=== PATIENT | male | born 1945 | race Two or more races ===

== ENCOUNTER 2024-11-09 09:45 | Emergency (ER) | payer MEDICARE, MEDICAID, SELFPAY ==
[2024-11-09 10:07] VITALS: BP 121/66; PULSE 88; RESP 18; TEMP 37.8; O2SAT 95; BMI 25.0
--- NOTE | 2024-11-09 10:19 | EKG_ITS ---
[facility] (Formerly [facility]) Test Date: 2024-11-09 Pat Name: GEREMIAS OLMEDO Department: Room: - Gender: Male Back Joiner: : 1945 Requested By: Ky Lyles (DON) Order Number: [id number] Reading MD: Ky Lyles (BUTTON TUFTER) Measurements Intervals [place] Rate: 83 P: SD: QRS: 8 QRSD: 95 T: 36 QT: 377 QTc: 445 Interpretive Statements SUPRAVENTRICULAR RHYTHM ABNORMAL RHYTHM ECG No previous ECG available for comparison /store/S0/[id number]/ecg/[id number]
--- NOTE | 2024-11-09 10:19 | XR_ITS ---
Examination: AP chest single view Technique one AP portable upright chest single view Exam date and time: November 09, 2024 1046 hours Comparison May 18, 2018 INDICATIONS: Shortness breath coughing beginning 3 days ago. FINDINGS: No significant cardiac enlargement CABG Mild vascular congestion. No lobar pneumonia Moderate osteopenia IMPRESSION: Mild vascular congestion No lobar pneumonia
--- NOTE | 2024-11-09 10:19 | XR_ITS ---
Examination: CT brain head without contrast. 2-D sagittal coronal reconstructions Date and time of exam:November 09, 2024 1029 hours INDICATIONS: Onset confusion altered mental status today CTDI: vol (mGy):49.6 DLP: (mGycm):974 Technique: Multiple CT axial sections of the brain have been obtained, 5 mm slice thickness. Contrast has not been administered. 2-D sagittal, coronal reconstructions have been obtained Low dose protocols were performed. One or more of the following dose reduction techniques were used; automated exposure control, adjustment of the mA and/or KV according to patient size, use of iterative reconstruction technique. Findings: No significant ventricular enlargement. Intra-axial or extra-axial hemorrhage density is not seen. No mass effect or midline shift Basal cisterns are not remarkable. Fourth ventricle is midline. Cranial vault intact. Significant chronic sinusitis Impression: Negative for acute hemorrhage, mass effect or midline shift If symptoms persist, consider brain MRI follow-up, stroke protocol
[2024-11-09 11:09] LABS: Lactate (Lactic Acid) 1.7 mMol/L (0.4-2.0)
[2024-11-09 11:36] LABS: Basophils % (Auto) 0 % (0-2.5); Eosinophils % (Auto) 0 % (0-10); Hematocrit 32.1 % (41.0-53.0); Hemoglobin 10.5 g/dL (13.5-16.0); Immature Granulocytes % (Auto) 0 % (0-0); Immature Granulocytes Auto 0.02 Thou/mm3 (0.00-0.00); Lymphocytes # (Auto) 1.2 Thou/mm3 (1.0-4.8); Lymphocytes % (Auto) 12 % (10-50); Mean Corpuscular HGB Conc 32.7 g/dl (31.0-37.0); Mean Corpuscular Hemoglobin 27.8 pg (25.0-35.0); Mean Corpuscular Volume 85 fL (80-100); Monocytes # (Auto) 1.1 Thou/mm3 (0.0-0.8); Monocytes % (Auto) 12 % (0-12); Neutrophils # (Auto) 7.4 Thou/mm3 (1.8-7.7); Neutrophils % (Auto) 75 % (37-80); Nucleated Red Blood Cell % 0 /100 WBC (0); Platelet Count 216 Thou/mm3 (140-440); RDW Standard Deviation 46.2 fL (35.1-43.9); Red Blood Count 3.78 Miln/mm3 (4.50-5.90); White Blood Count 9.8 Thou/mm3 (3.8-10.6)
[2024-11-09 11:41] LABS: Alanine Aminotransferase 15 U/L (10-49); Albumin, Serum 4.9 gm/dL (3.4-4.8); Albumin/Globulin Ratio 1.6 (1.2-2.2); Alkaline Phosphatase 100 U/L (46-116); Anion Gap 12 (7-16); Aspartate Amino Transferase 23 U/L (0-34); BUN/Creatinine Ratio 11 Ratio (12-20); Bilirubin,Total 0.7 mg/dL (0.3-1.2); Blood Urea Nitrogen 25 mg/dL (9-23); Calcium 9.7 mg/dL (8.3-10.6); Calcium (Corrected) 9.7 mg/dL (8.5-10.1); Carbon Dioxide 23.1 mMol/L (20.0-31.0); Chloride 100 mMol/L (98-107); Creatinine (Component) 2.2 mg/dL (0.6-1.3); Estimated Creatinine Clearance 25.9 mL/min (>60); Globulin 3.1 gm/dL (2.3-3.5); Glucose 153 mg/dL (74-106); Osmolality,Calculated 277 (275-295); Potassium 4.4 mMol/L (3.4-5.1); Procalcitonin 0.75 ng/ml (0.0-0.49); Sodium 135 mMol/L (136-145); Troponin I < 0.020 ng/mL (0.0-0.045); eGFR 30 See Note
[2024-11-09 12:03] VITALS: BP 139/71; PULSE 83; RESP 18; TEMP 37.4; O2SAT 97
[2024-11-09 12:09] VITALS: BP 139/71; PULSE 78; RESP 17; TEMP 37.3; O2SAT 94
--- NOTE | 2024-11-09 12:19 | EDNOTE_ITS ---
ED General RME/HPI General Chief complaint: Altered Mental Status Stated complaint: confused / altered since this morning/ weakness Time Seen by Provider: 11/09/24 11:21 Arrival date/time: 11/09/24 09:45 RME / HPI RME / HPI narrative: Chief complaint: Altered mentation HPI: Patient is a 79-year-old male with past medical history of type II mez-dxyoris-foxsrfcjc diabetes, primary hypertension, osteoarthritis, hyperlipidemia and advanced dementia, who was brought in by his family for change in his mentation over the last 24 hours. Patient is AO x 2 at baseline, lives alone and family checks on him every other day. As per granddaughter present at bedside, patient was found this morning at his porch sitting outside without any hands, on questioning he responded saying that there were multiple men and women in the house who asked him to take his clothes off and get out . He has never been confused or talked out of his normal, therefore family was concerned and decided to bring him to the ER. Patient has not had any signs of infection recently, denies any fevers or bodyaches or other systemic symptoms. Patient otherwise is ambulatory and carries out his activities of daily living independently. His long-term memory is intact, but he does have short-term memory lapses. Allergies: NKFDA Social history: Tobacco?hx:?Denies ETOH?hx:?Denies Drug?hx:?Denies Social?History?Note:?Lives alone at home, family visits daily Family history: Unsure Related Data Home Medications ?Medication ?Instructions ?Recorded ?Confirmed lisinopril 10 mg tablet 10 mg PO QDAY 08/18/1808/18 metformin 1,000 mg tablet 1,000 mg PO BID 08/18/1804/28 simvastatin 40 mg tablet 40 mg PO QDAY 08/18/1808/18 Previous Rx's ?Medication ?Instructions ?Recorded ibuprofen 600 mg tablet 600 mg PO Q8H PRN pain #30 t abs 04/30/21 donepezil 5 mg tablet 5 mg PO QDAY #30 tabs risperidone 0.5 mg tablet 0.5 mg PO QDAY #30 tabs 10/13 07/06 (Risperdal) risperidone 1 mg tablet (Risperdal) 1 mg PO .bedtime # 30 tabs 11/09/24 Allergies Allergy/AdvReac Type Severity Reaction Status Date / Time No Known Allergies Allergy Verified 11/09/24 09:46 Review of Systems Review of Systems Narrative Review of Systems: GENERAL: Denies fevers/chills or diaphoresis. HEENT: Denies headache or visual/hearing changes. Denies nasal discharge. NEURO: Denies unusual weakness or difficulty speaking. CARDIO: Denies chest pain or palpitations. PULM: Denies SOB, coughing, or wheezing. GI: Denies abdominal pain, N/V/C/D. Reports having BMs URO: Denies burning/itching/pain/urinary changes. MSK/EXT/SKIN: Denies joint/skeletal/muscle pain, issues/changes in upper or lower extremities, itchiness, or superficial pain. PSYCH: Cooperative, pleasant mood & affect. The rest of the review of systems is otherwise negative. ED Exam Narrative Physical exam: Constitutional Alert, oriented x2, elderly HEENT Vision grossly intact. Patent nares. Trachea midline. Respiratory Chest normal on inspection and clear to auscultation bilaterally. Cardiovascular S1 and S2 audible, RRR. No murmurs or carotid bruit. No gross JVD. Abdominal Soft and non tender to palpation in all quadrants. BS + Genitourinary No bladder tenderness, no flank pain. Normal to palpation. Musculoskeletal Extremities tone within normal limits. No LE edema. Neurological CN II - XII grossly intact. Extremity motor and sensation grossly intact. Skin Warm, dry and intact. No apparent lesions. Psychiatric Patient has a good affect, is cooperative. Course Quality Measures none Orders Category Date Time Status Bedside COVID-19 Antigen Test NOW Care 11/09/24 10:19 Completed Bedside Influenza A&B Antigen Test NOW Care 11/09/24 10:19 Completed EKG (ED ONLY) *Do not use* NOW Care 11/09/24 10:[address] head/brain wo con Stat Exams 11/09/24 10:19 Completed EKG (ED Only) Stat Exams 11/09/24 10:19 Draft XR chest 1V portable Stat Exams 11/09/24 10:19 Completed Blood Culture (Lab) Stat Lab 11/09/24 10:55 Received CBC Stat Lab 11/09/24 10:55 Completed Comprehensive Metabolic Panel Stat Lab 11/09/24 10:55 Completed Lactate (Lactic Acid) Stat Lab 11/09/24 10:55 Completed Procalcitonin Stat Lab 11/09/24 10:55 Completed Troponin I Stat Lab 11/09/24 10:55 Completed Urinalysis Stat Lab 11/09/24 12:07 Completed Urine Culture Stat Lab 11/09/24 12:07 Received Sodium Chloride 0.9% 1000 ml [Ns] 1,000 ml Med 11/09/24 11:53 Discontinued IV 999 mls/hr Reevaluation(s) Reevaluation #1: 2:15PM Patient appears to be at his baseline. All testing negative for any acute infections Family informed, will come to get patient Vital Signs Vital signs: Vital Signs Temperature 100.1 F 11/09/24 10:07 Pulse Rate 88 11/09/24 10:07 Respiratory Rate 18 11/09/24 10:07 Blood Pressure 121/66 11/09/24 10:07 Pulse Oximetry (%) 95 11/09/24 10:07 Oxygen Delivery Method Room Air 11/09/24 10:07 [facility] Patient data External records reviewed:: None Clinical information provided by:: patient and family Social determinants that could affect healthcare access:: other (specify) (Advanced age) Patient has the following chronic illnesses:: Advanced age, DM, hyperlipidemia, HTN How is presenting disease/condition affected by chronic disease/condition?: e xacerbated by Evaluation data The following diagnostics were reviewed and interpreted by me:: lab results, radiology exam(s) and EKG tracing(s) (My interpretation of the EKG is: Probable sinus rhythm (83 bpm) with nonspecific ST-T changes. Albert Vega MD) Lab and/or radiology exams considered but not ordered:: None Interpretation Summary: Dementia Medications Medications considered but not ordered:: None Medication administrations:: Medication Administration History Discontinued Medications Sodium Chloride (Ns) 1,000 mls @ 999 mls/hr IV .Q1H1M ONE Stop: 11/09/24 12:53 Last Admin: 11/09/24 13:19 Dose: 999 mls/hr Documented By: EDU IV fluid Consultations Consultation(s) initiated? (list below): No Diagnosis Differential Diagnosis ED Complaint MDM: CVA, OH, UTI, pneumonia, sepsis, electrolyte abnormalities, dementia Most likely diagnosis given after review of the tests above:: Dementia Admission Indicated Admission indicated?: not indicated Explain why admission is indicated or not indicated:: No criteria for admission Admission Request Was there a request for admission?: No Disposition Plan Disposition Plan: Discharge Discharge Attestation Discharge Attestation: The patient and all family members were given an opportunity to ask questions and understood the discharge instructions. Discharge instructions specifically effects, indications for sooner follow up or return to the emergency department, and the expected course of current diagnosis. Patient condition: Stable Medical Decision Making MDM Narrative MDM Narrative: Patient is a 79 year old elderly gentleman who was seen for an isolated episode of altered mentation. In the ER, patient was at his baseline and all testing was negative for any acute illness. Plan: Discharge home, follow up with PCP. family advised to keep re-orienting the patient. Differential Diagnosis Differential Diagnosis: CVA, OH, UTI, pneumonia, sepsis, electrolyte abnormalities, dementia Lab Data 11/09/24 10:55 11/09/24 10:55 Labs: Lab Results 11/09/24 11/09/24 Range/Units 10:55 12:07 WBC 9.8 (3.8-10.6) Thou/mm3 RBC 3.78 L (4.50-5.90) Miln/mm3 Hgb 10.5 L (13.5-16.0) g/dL Hct 32.1 L (41.0-53.0) % MCV 85 (80-100) fL MCH 27.8 (25.0-35.0) pg MCHC 32.7 (31.0-37.0) g/dl RDW Std Deviation 46.2 H (35.1-43.9) fL Plt Count 216 (140-440) Thou/mm3 Neut % (Auto) 75 (37-80) % Lymph % (Auto) 12 (10-50) % [place] % (Auto) 12 (0-12) % Eos % (Auto) 0 (0-10) % Baso % (Auto) 0 (0-2.5) % Neut # (Auto) 7.4 (1.8-7.7) Thou/mm3 Lymph # (Auto) 1.2 (1.0-4.8) Thou/mm3 [place] # (Auto) 1.1 H (0.0-0.8) Thou/mm3 Eos # (Auto) 0.0 (0.0-0.5) Thou/mm3 Baso # (Auto) 0.0 (0.0-0.2) Thou/mm3 Immature Gran # (Auto) 0.02 H (0.00-0.00) Thou/mm3 Absolute Nucleated RBC 0.00 (0.00-0.00) Thou/mm3 Immature Gran % 0 (0-0) % Nucleated RBC % 0 (0) /100 WBC Sodium 135 L (136-145) mMol/L Potassium 4.4 (3.4-5.1) mMol/L Chloride 100 (98-107) mMol/L Carbon Dioxide 23.1 (20.0-31.0) mMol/L Anion Gap 12 (7-16) BUN 25 H (9-23) mg/dL Creatinine 2.2 H (0.6-1.3) mg/dL Estim Creat Clear Calc 25.9 L (>60) mL/min eGFR 30 L (60 - ) See Note BUN/Creatinine Ratio 11 L (12-20) Ratio Glucose 153 H (74-106) mg/dL Calculated Osmolality 277 (275-295) Lactic Acid 1.7 (0.4-2.0) mMol/L Calcium 9.7 (8.3-10.6) mg/dL Corrected Calcium 9.7 (8.5-10.1) mg/dL Total Bilirubin 0.7 (0.3-1.2) mg/dL AST 23 (0-34) U/L ALT 15 (10-49) U/L Alkaline Phosphatase 100 (46-116) U/L Troponin I < 0.020 (0.0-0.045) ng/mL Total Protein 8.0 (5.7-8.2) gm/dL Albumin 4.9 H (3.4-4.8) gm/dL Globulin 3.1 (2.3-3.5) gm/dL Albumin/Globulin Ratio 1.6 (1.2-2.2) Procalcitonin 0.75 H (0.0-0.49) ng/ml Ur Collection Type Clean Catch Urine Color Yellow (Lt Yel-Yel) Urine Clarity Turbid A (Clear/Hazy) Urine pH 6.0 (5.0-7.0) Ur Specific [place] 1.022 (1.001-1.035) Urine Protein 3+ A (Neg - Trace) Urine Glucose (UA) Negative (Negative) Urine Ketones Negative (Negative) Urine Blood Negative (Negative) Urine Nitrite Negative (Negative) Urine Bilirubin Negative (Negative) Urine Urobilinogen (Auto) Negative (0.0-1.0) mg/dL Ur Leukocyte Esterase Negative (Negative) Urine RBC 6 H (0-3) /hpf Urine WBC 5 (0-5) /hpf Ur Squamous Epith Cells < 1 (0-5) /hpf Urine Bacteria None (None) Hyaline Casts < 1 (0-1) /hpf Discharge Plan Plan Patient Disposition: HOME (Self Care) Prescriptions/Referrals Prescriptions/Med Rec: New donepezil 5 mg tablet 5 mg PO QDAY Qty: 30 1RF risperidone [Risperdal] 0.5 mg tablet 0.5 mg PO QDAY Qty: 30 1RF risperidone [Risperdal] 1 mg tablet 1 mg PO .bedtime Qty: 30 1RF No Action simvastatin 40 mg Tablet 40 mg PO QDAY metformin 1,000 mg Tablet 1,000 mg PO BID lisinopril 10 mg Tablet 10 mg PO QDAY ibuprofen 600 mg tablet 600 mg PO Q8H PRN (Reason: pain) Qty: 30 0RF Referrals: Alejandro Sim MD [Primary Care Provider] - In 1 week Problem List Clinical Impression: Dementia Patient/Caregiver Discharge Instructions Discharge Activity: activity as tolerated Education Materials: ED CAREGIVER SUPPORT for DEMENTIA Additional Instructions: Discharge Instructions from Dr. Vega printed for you: 1. After evaluation, Mr. Whyte has dementia. There is no immediately life- threatening condition. Such as stroke or brain tumor. And there is no very serious infection, such as UTI or pneumonia or blood poisoning. 2. To help the dementia, risperidone 0.5 mg every morning. And risperidone 1 mg and benazepril 5 mg every night. Until cleared by a doctor taking care of him. 3. See a private doctor on 11/11/2024 for recheck and further care. Ask to review all test results and official radiology reports, to make sure you receive all necessary follow-ups and monitoring. 4. Seek immediate medical care with worsening or with any concerns. Instrucciones de torito del Dr. Vega impresas para usted: 1. Despu?s de la evaluaci?n, el Sr. Rodr?guez tiene demencia. No hay ninguna afecci?n que ponga en peligro callejas daria de inmediato, amee un derrame cerebral o un tumor cerebral, y no hay ninguna infecci?n muy grave, amee carlos infecci?n urinaria, neumon?a o envenenamiento de la mala. 2. Para ayudar con la demencia, risperidona 0,5 mg todas las ma?anas y risperidona 1 mg y benazepril 5 mg todas las noches, hasta que el m?dico que lo atienda lo autorice. 3. Consulte a un m?dico privado el 11/11/2024 para volver a realizarle un control y recibir m?s atenci?n. Pida que se revisen todos los resultados de las pruebas y los informes radiol?gicos oficiales para asegurarse de recibir todos los seguimientos y la supervisi?n necesarios. 4. Busque atenci?n m?dica inmediata si la enfermedad empeora o si tiene alguna inquietud. Print Language: Bengali Stand Alone Forms: [employer] Award Info., Patient Portal Info Letter
[2024-11-09 12:35] LABS: Collection Type, Urine Clean Catch
[2024-11-09 12:52] LABS: Bilirubin,Urine Negative (Negative); Blood,Urine Negative (Negative); Clarity,Urine Turbid (Clear/Hazy); Color,Urine Yellow (Lt Yel-Yel); Glucose, Urine Negative (Negative); Hyaline Casts,Urine < 1 /hpf (0-1); Ketones,Urine Negative (Negative); Leukocyte Esterase,Urine Negative (Negative); Nitrite,Urine Negative (Negative); Protein,Urine 3+ (Neg - Trace); RBC,Urine 6 /hpf (0-3); Specific Gravity,Urine 1.022 (1.001-1.035); Squamous Epithelial Cell,Urine < 1 /hpf (0-5); Urobilinogen,Urine Negative mg/dL (0.0-1.0); WBC,Urine 5 /hpf (0-5)
[2024-11-09] MEDS: SODIUM CHLORIDE 0.9% 1000 ML 1,000 ML 999 ML IV (13:19)
[2024-11-09 14:12] VITALS: BP 139/76; PULSE 70; RESP 18; O2SAT 94
== END 2024-11-09 15:19 | disposition home or self-care (01) ==
PROVIDERS: Nurse Practitioner Primary Care; Emergency Provider Emergency Medicine; PCP Internal Medicine
DX: F03.90 Unspecified dementia, unspecified severity, without behavioral disturbance, psychotic disturbance, mood disturbance, and anxiety (principal); R05.9 Cough, unspecified; R06.02 Shortness of breath; R94.31 Abnormal electrocardiogram [ECG] [EKG]; I10 Essential (primary) hypertension; Z60.2 Problems related to living alone
CPT/HCPCS: 36415; 70450; 71045; 80053; 81001; 83605; 84145; 84484; 85025; 87040; 87086; 87400; 87811; 93005; 99284; J7030

== ENCOUNTER 2025-05-01 17:22 | Inpatient (IN) | payer OTHER, MEDICARE, SELFPAY ==
--- NOTE | 2025-05-01 17:41 | XR_ITS ---
Examination: CT brain head without contrast. 2-D sagittal coronal reconstructions Date and time of exam:May 01, 20252002 hours INDICATIONS: Headaches dizziness beginning 2 days ago CTDI: vol (mGy):49.2 DLP: (mGycm):970 Technique: Multiple CT axial sections of the brain have been obtained, 5 mm slice thickness. Contrast has not been administered. 2-D sagittal, coronal reconstructions have been obtained Low dose protocols were performed. One or more of the following dose reduction techniques were used; automated exposure control, adjustment of the mA and/or KV according to patient size, use of iterative reconstruction technique. Findings: No significant ventricular enlargement. Intra-axial or extra-axial hemorrhage density is not seen. No mass effect or midline shift Basal cisterns are not remarkable. Fourth ventricle is midline. Cranial vault intact. Impression: Negative for acute hemorrhage, mass effect or midline shift Advise clinical correlation and follow up accordingly
--- NOTE | 2025-05-01 17:41 | EKG_ITS ---
[facility] Test Date: 2025-05-01 Pat Name: GEREMIAS BOWLINGDepartment: Room: - Gender: Male Data Processor: : 1945 Requested By: Geovanny Stephens Order Number: [id number] Reading MD: Geovanny Stephens Measurements Intervals [place] Rate: 57 P: DC: QRS: 29 QRSD: 99 T: 0 QT: 436 QTc: 426 Interpretive Statements ATRIAL FLUTTER/TACHYCARDIA WITH SLOW VENTRICULAR RESPONSE MODERATE ST DEPRESSION [0.05+ mV ST DEPRESSION] No previous ECG available for comparison /store/S0/[id number]/[id number]
--- NOTE | 2025-05-01 17:42 | XR_ITS ---
Examination: Knee, left , 3 views Technique: Knee AP, lateral, oblique 3 views Date and time of exam: May 01, 2025 1755 hours INDICATIONS: Left knee pain 3 months FINDINGS: Moderate tricompartment osteoarthritis No fracture or dislocation No foreign body IMPRESSION: Moderate tricompartment osteoarthritis
--- NOTE | 2025-05-01 17:42 | PD.EDRME ---
Rapid Medical Screening Exam RME Arrival date/time: 05/01/25 17:22 79-year-old male with no known medical history presents to the emergency room with a chief complaint of a headache, dizziness, and left knee pain x 2 days I have greeted and performed a focused initial assessment of this patient. A comprehensive ED assessment and evaluation of the patient, analysis of all test results, and completion of the medical decision making process will be conducted by additional ED providers. Chief Complaint: Headache Time Seen by Provider: 05/01/25 17:27 Vital signs reviewed by provider: Yes
[2025-05-01 17:45] VITALS: BP 108/71; PULSE 61; RESP 19; TEMP 37.1; O2SAT 98
[2025-05-01 18:01] LABS: Basophils # (Auto) 0.0 Thou/mm3 (0.0-0.2); Basophils % (Auto) 1 % (0-2.5); Eosinophils # (Auto) 0.4 Thou/mm3 (0.0-0.5); Eosinophils % (Auto) 8 % (0-10); Hematocrit 31.5 % (41.0-53.0); Hemoglobin 10.6 g/dL (13.5-16.0); Immature Granulocytes Auto 0.02 Thou/mm3 (0.00-0.00); Lymphocytes # (Auto) 1.4 Thou/mm3 (1.0-4.8); Lymphocytes % (Auto) 27 % (10-50); Mean Corpuscular HGB Conc 33.7 g/dl (31.0-37.0); Mean Corpuscular Hemoglobin 27.8 pg (25.0-35.0); Mean Corpuscular Volume 83 fL (80-100); Monocytes # (Auto) 0.5 Thou/mm3 (0.0-0.8); Monocytes % (Auto) 11 % (0-12); Neutrophils # (Auto) 2.7 Thou/mm3 (1.8-7.7); Neutrophils % (Auto) 53 % (37-80); Nucleated Red Blood Cell # 0.00 Thou/mm3 (0.00-0.00); Nucleated Red Blood Cell % 0 /100 WBC (0); Platelet Count 213 Thou/mm3 (140-440); RDW Standard Deviation 47.1 fL (35.1-43.9); Red Blood Count 3.81 Miln/mm3 (4.50-5.90); White Blood Count 5.0 Thou/mm3 (3.8-10.6)
[2025-05-01 18:30] LABS: B-Type Natriuretic Peptide 146 pg/mL (0-100)
[2025-05-01 18:32] LABS: Alanine Aminotransferase 13 U/L (10-49); Albumin, Serum 4.3 gm/dL (3.4-4.8); Albumin/Globulin Ratio 1.7 (1.2-2.2); Alkaline Phosphatase 116 U/L (46-116); Anion Gap 9 (7-16); Aspartate Amino Transferase 17 U/L (0-34); BUN/Creatinine Ratio 9 Ratio (12-20); Bilirubin,Total 0.4 mg/dL (0.3-1.2); Blood Urea Nitrogen 18 mg/dL (9-23); Calcium 9.5 mg/dL (8.3-10.6); Calcium (Corrected) 9.5 mg/dL (8.5-10.1); Carbon Dioxide 26.4 mMol/L (20.0-31.0); Chloride 104 mMol/L (98-107); Creatinine (Component) 2.0 mg/dL (0.6-1.3); Globulin 2.5 gm/dL (2.3-3.5); Glucose 144 mg/dL (74-106); Magnesium 1.6 mg/dL (1.6-2.6); Osmolality,Calculated 282 (275-295); Potassium 4.5 mMol/L (3.4-5.1); Sodium 139 mMol/L (136-145); Total Protein 6.8 gm/dL (5.7-8.2); Troponin I < 0.020 ng/mL (0.0-0.045); eGFR 34 See Note
[2025-05-01] MEDS: MECLIZINE HCL 25 MG TABLET 50 MG PO (18:32)
[2025-05-01 22:20] LABS: Collection Type, Urine Clean Catch
[2025-05-01 22:27] LABS: Bilirubin,Urine Negative (Negative); Blood,Urine Negative (Negative); Clarity,Urine Turbid (Clear/Hazy); Color,Urine Yellow (Lt Yel-Yel); Glucose, Urine Negative (Negative); Hyaline Casts,Urine 1 /hpf (0-1); Ketones,Urine Trace (Negative); Leukocyte Esterase,Urine Positive (Negative); Nitrite,Urine Negative (Negative); PH,Urine 5.5 (5.0-7.0); Protein,Urine 1+ (Neg - Trace); RBC,Urine 3 /hpf (0-3); Specific Gravity,Urine 1.030 (1.001-1.035); Squamous Epithelial Cell,Urine 1 /hpf (0-5); Urobilinogen,Urine 3.0 mg/dL (0.0-1.0); WBC,Urine 6 /hpf (0-5)
[2025-05-01 22:55] VITALS: BP 132/84; PULSE 56; RESP 16; TEMP 37; O2SAT 96
--- NOTE | 2025-05-01 23:20 | EDNOTE_ITS ---
<Statement entered by Audra Zapata MD - 05/02/25 18:56> As co-signing physician, I was present and available for consult prn. I concur with the plan and care as documented by the midlevel provider. ED Dizzyness RME/HPI General Chief Complaint: Headache Stated Complaint: HEADACHES, DIZZY, PAIN IN KNEES, DIFF. WALKING Time Seen by Provider: 05/01/25 17:27 Arrival date/time: 05/01/25 17:22 79-year-old male with a past medical history of hypertension, diabetes, hyperlipidemia, CAD with CABG (unknown number of vessels), and dementia presents to the ED with his daughter with a chief complaint of dizziness, headache and knee pain. This has been going on since yesterday. He denies any chest pain or shortness of breath. He denies palpitations. Denies any recent illness with fever, chills, but has had a dry cough. He denies any nausea or vomiting. 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 RME / HPI RME / HPI Narrative: 05/01/25 17:22 79-year-old male with no known medical history presents to the emergency room with a chief complaint of a headache, dizziness, and left knee pain x 2 days I have greeted and performed a focused initial assessment of this patient. A comprehensive ED assessment and evaluation of the patient, analysis of all test results, and completion of the medical decision making process will be conducted by additional ED providers. Related Data Home Medications ?Medication ?Instructions ?Recorded ?Confirmed lisinopril 10 mg tablet 10 mg PO QDAY 08/18/1808/18 metformin 1,000 mg tablet 1,000 mg PO BID 08/18/1804/28 simvastatin 40 mg tablet 40 mg PO QDAY 08/18/1808/18 Previous Rx's ?Medication ?Instructions ?Recorded ibuprofen 600 mg tablet 600 mg PO Q8H PRN pain #30 t abs 04/30/21 donepezil 5 mg tablet 5 mg PO QDAY #30 tabs risperidone 0.5 mg tablet 0.5 mg PO QDAY #30 tabs 10/13 07/06 (Risperdal) risperidone 1 mg tablet (Risperdal) 1 mg PO .bedtime # 30 tabs 11/09/24 Allergies Allergy/AdvReac Type Severity Reaction Status Date / Time No Known Allergies Allergy Verified 05/02/25 04:57 Review of Systems Review of Systems Systems Reviewed: All systems reviewed, normal except as documented Past Medical History Past Medical History NEUROLOGIC: Negative Neurological Disorders or Seizures CARDIAC: Positive Hypertension; Negative Cardiac Disorders or Congestive Heart Failure RESPIRATORY: Negative Chronic Obstructive Pulmonary Disease (COPD) GENITOURINARY: Negative Genitourinary Disorders or Renal Disease MUSCULOSKELETAL: Negative Musculoskeletal Disorders ENT: Positive Cataracts (OS) and Blind (RIGHT EYE) ENDOCRINE: Positive Endocrine Disorders and Diabetes Mellitus Type 2; Negative Diabetes Mellitus Type 1 HEMATOLOGIC: Negative Blood Disorders OTHER HISTORY: Negative Autoimmune Disease, Falls, Blood Transfusions or Anesthesia Reactions Surgical History SURGICAL: Positive Angiogram Social History SMOKING STATUS: Never smoker Past Medical History Comments PMH COMMENT: Hypertension, diabetes, hyperlipidemia, and dementia. ED Exam Narrative Physical exam: ALERT, afebrile and non-toxic appearing 79-year-old male, no acute distress. Lung are clear, RRR, well-healed sternotomy scar noted. Abdomen is soft and non-distended. He has mild left upper quadrant tenderness. No pedal edema noted. Moves all extremities well. Course Course Course Narrative: Initial vital signs blood pressure 108/71, pulse 61, respirations 19 and nonlabored, temp 98.7, O2 sat 98% on room air. CBC reveals a normal white count, no low H&H of 10.6/31.5 with normal platelets. Chemistry panel reveals normal electrolytes with the exception of an elevated glucose of 144. Creatinine is elevated at 2.0 and BUN is normal at 18. LFTs are normal. Troponin is normal at less than 0.020 and BNP is elevated at 146. Urinalysis reveals turbid yellow urine with a specific gravity of 1.030 with 1+ protein, trace ketones, negative nitrates, positive leukocyte esterase with 3 RBCs, 6 WBCs, 1 epithelial and no bacteria. EKG reveals atrial flutter with 4-1 conduction. This is a new EKG finding as compared to previous EKGs from 11/05. XR left knee reveals: Tricompartment osteoarthritis noted. No acute fracture. CT brain without contrast reveals: Negative for acute hemorrhage, mass effect or midline shift. XR chest ordered and pending. Quality Measures none Orders Category Date Time Status EKG (ED ONLY) *Do not use* NOW Care 05/01/25 17:[address] head/brain wo con Stat Exams 05/01/25 17:41 Completed EKG (ED Only) Stat Exams 05/01/25 17:41 Draft XR chest 1V portable Stat Exams 05/01/25 23:39 Completed XR knee LT 3V Stat Exams 05/01/25 17:42 Completed B-Type Natriuretic Peptide Stat Lab 05/01/25 17:51 Completed CBC Stat Lab 05/01/25 17:51 Completed Comprehensive Metabolic Panel Stat Lab 05/01/25 17:51 Completed Magnesium Stat Lab 05/01/25 17:51 Completed Troponin I Stat Lab 05/01/25 17:51 Completed Urinalysis Stat Lab 05/01/25 22:10 Completed Meclizine HCl [Antivert] Med 05/01/25 17:41 Discontinued 50 mg PO X1 ONE Vital Signs Vital signs: Vital Signs Temperature 98.7 F 05/01/25 17:45 Pulse Rate 61 05/01/25 17:45 Respiratory Rate 19 05/01/25 17:45 Blood Pressure 108/71 05/01/25 17:45 Pulse Oximetry (%) 98 05/01/25 17:45 Oxygen Delivery Method Room Air 05/01/25 17:45 Dizziness MDM Narrative MDM Narrative:: Symptoms, exam and diagnostic studies are consistent with: Dizziness secondary to new onset atrial flutter with a 4-1 conduction. Old records reviewed, which revealed no evidence of previous atrial flutter on 2 previous EKGs. Patient was admitted to the hospital in stable condition. Patient has an old record under the name of Cameron Whyte Patient data External records reviewed:: [facility] previous records Clinical information provided by:: patient and family Social determinants that could affect healthcare access:: none Patient has the following chronic illnesses:: Diabetes, hypertension, hyperlipidemia, coronary artery disease, dementia How is presenting disease/condition affected by chronic disease/condition?: exacerbated by Evaluation data The following diagnostics were reviewed and interpreted by me:: lab results, radiology exam(s) and EKG tracing(s) Lab and/or radiology exams considered but not ordered:: N/A Interpretation Summary: As noted above Medications / Prescriptions Medications or Prescriptions considered but not ordered:: N/A Medication administrations:: Medication Administration History Acetaminophen (Acetaminophen 325 Mg Tablet) 650 mg PO Q6H PRN PRN Reason: PAIN SCALE 1-3 (mild Stop: 06/01/25 00:21 Apixaban (Apixaban 2.5 Mg Tablet) 5 mg PO BID [facility] Stop: 06/01/25 08:59 Atropine Sulfate (Atropine Sulf Inj 0.4 Mg/Ml Vial) 0.5 mg IV Q5MIN PRN PRN Reason: HR <40 and symptomatic Dextrose (Dextrose 50%-Water Inj 50 Ml Syringe) 25 ml IV Q15MIN PRN PRN Reason: BG 50-70 responsive npo pt Stop: 06/01/25 00:27 Dextrose (Dextrose 50%-Water Inj 50 Ml Syringe) 50 ml IV Q15MIN PRN PRN Reason: BG <50 OR BG <70 & pt unresponsive Stop: 06/01/25 00:27 Donepezil HCl (Donepezil Hcl 5 Mg Tablet) 5 mg PO HS ANTONY Stop: 06/01/25 20:59 Glucagon (Glucagon Inj 1 Mg Vial) 1 mg IM Q15MIN PRN PRN Reason: BG <70, and no IV access Insulin Human Lispro (Insulin Lispro (Admelog) 1 Unit/0.01 Ml Unit) 0 unit SC [facility]; Protocol Stop: 06/01/25 07:29 Ondansetron HCl (Ondansetron Inj 2 Mg/Ml Inj 2 Ml) 4 mg IVP Q6H PRN; Protocol PRN Reason: NAUSEA OR VOMITING Stop: 06/01/25 00:21 Risperidone (Risperidone 1 Mg Tablet) 1 mg PO QDAY ANTONY Stop: 06/01/25 08:59 Sennosides (Senna Tablet) 1 tab PO QDAY PRN; Protocol PRN Reason: constipation Stop: 06/01/25 00:21 Discontinued Medications Amlodipine Besylate (Amlodipine Besylate 5 Mg Tablet) 5 mg PO X1 ONE Stop: 05/02/25 00:40 Last Admin: 05/02/25 02:01 Dose: 5 mg Documented By: BRIAN Atropine Sulfate (Atropine Sulf Inj 1 Mg/Ml Vial) 0.5 mg IVP Q5MIN PRN PRN Reason: HR <40 and symptomatic Hydralazine HCl (Hydralazine Inj 20 Mg/Ml Vial) 10 mg IVP X1 ONE Stop: 05/02/25 02:49 Last Admin: 05/02/25 05:21 Dose: 10 mg Documented By: SANJIV Magnesium Sulfate (Magnesium Sulfate Ivpb) 4 gm in 50 mls @ 12.5 mls/hr IV X1 ONE Stop: 05/02/25 04:29 Last Admin: 05/02/25 02:01 Dose: 12.5 mls/hr Documented By: BRIAN Meclizine HCl (Meclizine Hcl 25 Mg Tablet) 50 mg PO X1 ONE Stop: 05/01/25 17:42 Last Admin: 05/01/25 18:32 Dose: 50 mg Documented By: IGNACIO As noted above Consultations Consultation(s) initiated? (list below): Yes Consultation #1 (Physician, Specialty, Details): Discussed case with hospitalist service who will come down to see the patient and evaluate for possible admission. Diagnosis Dizziness Differential Diagnosis: benign paroxysmal positional vertigo, vertebral basilar insufficiency, cerebrovascular accident, acute vestibular neuronitis and transient cerebral ischemia Most likely diagnosis given after review of the tests above:: Dizziness secondary to atrial flutter with a 4-1 conduction. Admission Indicated Admission indicated?: indicated Explain why admission is indicated or not indicated:: New onset atrial flutter with a 4-1 conduction. Admission Request Was there a request for admission?: Yes Admission Attestation Admission request attestation: Discussed case with Hospitalist service regarding admission. Discussed patients ED course, exam findings, labs, and radiology results. The Hospitalist agrees to accept the patient for admission. Disposition Plan Disposition Plan: Admit Discharge Plan Plan Patient Disposition: Admit Acute Care w/in Hospital Problem List Clinical Impression: Atrial flutter with controlled response, Dizziness PA/HEEL CUTTER Supervising Physician PA/HEEL CUTTER Supervising Physician: Dr. Zapata
--- NOTE | 2025-05-01 23:39 | XR_ITS ---
Examination: PA chest single view TECHNIQUE: Upright PA chest single view Date and time: May 01, 2025 at 11:45 PM INDICATIONS: Headache dizziness beginning 2 days ago. FINDINGS: Normal heart size CABG Atelectasis versus mild pneumonia left base No pulmonary edema IMPRESSION: Atelectasis versus pneumonia left base, clinical correlation advised
[2025-05-02] VITALS (10 sets, daily range): BP systolic 106–186; BP diastolic 50–94; PULSE 35–78; RESP 12–20; TEMP 36–36.6; O2SAT 96–98; BMI 27.0
--- NOTE | 2025-05-02 00:28 | ECHO_ITS ---
Transthoracic Echo Report Ht (in): 62 Wt (lb): 200 Exam Location: Echo Lab Status: Emergency Grain Roaster: Niki Aviles Indications: Procedure Performed: BP: 106 / 50 HR: 78 Technical Quality: Technically difficult study MEASUREMENTS (Male / Female) Normal Values 2D ECHO LV Diastolic Diameter PLAX 4.6 cm 4.2 - 5.9 / 3.9 - 5.3 cm LV Systolic Diameter PLAX 3.0 cm IVS Diastolic Thickness 0.6 cm 0.6 - 1.0 / 0.6 - 0.9 cm LVPW Diastolic Thickness 1.2 cm 0.6 - 1.0 / 0.6 - 0.9 cm LV Relative Wall Thickness 0.4 LVOT Diameter 2.1 cm Aortic Root Diameter 2.5 cm LA Systolic Diameter LX 3.9 cm 3.0 - 4.0 / 2.7 - 3.8 cm LV Ejection Fraction MOD BP 63.6 % >= 55 % LV Cardiac Index MOD BP 3045.5 cm?/min?m? LV Ejection Fraction MOD 4C 59.7 % LV Cardiac Index MOD 4C 2608.8 cm?/min?m? LV Ejection Fraction 4C AL 61.5 % LV Cardiac Index 4C AL 2827.8 cm?/min?m? LV Ejection Fraction MOD 2C 65.8 % LV Cardiac Index MOD 2C 3275.4 cm?/min?m? LV Ejection Fraction 2C AL 67.9 % LV Cardiac Index 2C AL 3514.9 cm?/min?m? LA Volume Index 25.9 cm?/m? 16 - 28 cm?/m? M-MODE Aortic Root Diameter MM 2.3 cm LA Systolic Diameter MM 5.6 cm LA Ao Ratio MM 2.4 AV Cusp Separation MM 1.8 cm DOPPLER AV Peak Velocity 140.0 cm/s AV Peak Gradient 7.8 mmHg AV Mean Gradient 3.0 mmHg AV Velocity Time Integral 31.0 cm LVOT Peak Velocity 104.5 cm/s LVOT Peak Gradient 4.4 mmHg LVOT Velocity Time Integral 23.7 cm LVOT Cardiac Index 3144.6 cm?/min?m? AV Area Cont Eq vti 2.6 cm? AV Area Cont Eq pk 2.6 cm? MV Area PHT 3.1 cm? MR Peak Velocity 235.0 cm/s MR Peak Gradient 22.1 mmHg Mitral E Point Velocity 74.7 cm/s Mitral A Point Velocity 32.5 cm/s Mitral E to A Ratio 2.3 LV E' Lateral Velocity 10.3 cm/s Mitral E to LV E' Lateral Ratio 7.3 LV E' Septal Velocity 6.2 cm/s Mitral E to LV E' Septal Ratio 12.1 TR Peak Velocity 179.0 cm/s TR Peak Gradient 12.8 mmHg PV Peak Velocity 122.0 cm/s PV Peak Gradient 6.0 mmHg FINDINGS Left Ventricle Normal left ventricular size and systolic function with no obvious regional wall motion abnormalities. Mild LVH. Normal left ventricular diastolic filling pattern for age. The ejection fraction is visually estimated at 55 %. Right Ventricle The right ventricle is normal in size.the right ventricular systolic function is mildly decreased. Left Atrium The left atrium is normal by two-dimensional, color flow and Doppler imaging with no structural abnormalities, no thrombus formation present. Right Atrium The right atrium is normal by two-dimensional imaging, color flow and Doppler imaging with no structural abnormalities, no thrombus formation present. Atrial Septum The interatrial septum appears normal with no evidence of a shunt. Aorta The aorta is normal by two-dimensional, color flow and Doppler interrogation. Mitral Valve The mitral valve is normal by two-dimensional, color flow and Doppler interrogation. Trace mitral regurgitation. Aortic Valve The aortic valve is trileaflet and normal by two-dimensional, color flow and Doppler interrogation. There is no significant aortic valve regurgitation. Tricuspid Valve The tricuspid valve is normal by two-dimensional, color flow and Doppler interrogation. There is mild tricuspid valve regurgitation. Pulmonic Valve The pulmonic valve is not well visualized. There is no significant pulmonic valve regurgitation. Vessels The pulmonary artery appears normal. The inferior vena cava pulmonary and hepatic veins appear normal. Pericardium The pericardium is normal by two-dimensional imaging. There is no significant pericardial effusion. CONCLUSIONS Indication: New onset atrial flutter, history of CABG Normal LV size and function. Mild LVH. The ejection fraction is visually estimated at 55-60 %. Diastolic dysfunction present but could not be graded because of the atrial flutter. Clinic pulm office no Normal Rv size. RV systolic function is mildly decreased. Trace MR. Mild TR. No pericardial effusion. Matthew Esteves (Electronically Signed) Final Date: 02 May 2025 21:59
--- NOTE | 2025-05-02 00:44 | ESHP_ITS ---
<Statement entered by Chay Hutchinson MD - 05/02/25 04:40> I have personally seen and examined the patient. I agree with the resident's assessment and plan as documented below. Chay Hutchinson DO PGY-2 Internal Medicine - GME Documentation for date of: 05/02/25 [facility] History of Present Illness History of present illness: 79-year-old male with a past medical history of hypertension, diabetes, hyperlipidemia, CAD with CABG (unknown number of vessels), and dementia presents to the ED with his daughter with a chief complaint of dizziness, headache and knee pain. His knee pain has been occurring for the last two months affecting his ambulation. His neck pain and dizziness began 2 days ago. He rates the neck pain 8/10. His dizziness has been causing him to lose balance. Patient and daughter are unaware of the names and dosages of the medications he takes at home. Patient denies chest pain, shortness of breath, palpitations. He denies having any allergies. Currently he lives alone and one of his two daughters visits him everyday. Medical History: hypertension, diabetes, hyperlipidemia, CAD with CABG (unknown number of vessels), and dementia Surgical History: CABG Allergies: NKDA Medications:s donepezil 5 mg ibuprofen 600 mg lisinopril 20 mg metformin 1000 mg risperidone 1 mg at bedtime and 0.5 mg in the day simvastatin 40 mg Family Hx: Noncontributory Social Hx: Housed, lives alone. Never smoker. Former drinker. Feels safe at home. Two daughters check on him everyday ROS: all 12 systems assessed and the patient denies unless stated in the HPI ED Course Summary: Initial vital signs blood pressure 108/71, pulse 61, respirations 19 and nonlabored, temp 98.7, O2 sat 98% on room air. CBC reveals a normal white count, no low H&H of 10.6/31.5 with normal platelets. Chemistry panel reveals normal electrolytes with the exception of an elevated glucose of 144. Creatinine is elevated at 2.0 and BUN is normal at 18. LFTs are normal. Troponin is normal at less than 0.020 and BNP is elevated at 146. Urinalysis reveals turbid yellow urine with a specific gravity of 1.030 with 1+ protein, trace ketones, negative nitrates, positive leukocyte esterase with 3 RBCs, 6 WBCs, 1 epithelial and no bacteria. EKG reveals atrial flutter with 4-1 conduction. This is a new EKG finding as compared to previous EKGs from 11/05. XR left knee reveals: Tricompartment osteoarthritis noted. No acute fracture. CT brain without contrast reveals: Negative for acute hemorrhage, mass effect or midline shift. XR chest showed normal heart size, CABG, atelectasis versus mild pneumonia left base, no pulmonary edema Patient was seen and assessed in hospital bed. ED EKG shows new onset 4:1 atrial flutter warranting overnight hospital admission. Cardiology made aware. Exam Vital Signs Temp Pulse Resp BP Pulse Ox O2 Del Method 97.6 F 45 L 14 173/76 H 97 Room Air 05/02/25 00:24 05/02/25 00:24 05/02/25 00:24 05/02/25 00:24 05/02/25 00:24 05/02/25 00:24 Narrative Exam General: No apparent distress HEENT extraocular movements intact PERRL Cardio bradycardic regular rhythm no murmurs rubs or gallops heard Pulm lungs clear to auscultation no rhonchi or rales noted Abdomen: Soft, non tender to palpation, normal bowel sounds heard Extremities: No edema, pain, or swelling noted Neuro: No focal neurolofical deficits noted Psych: No AH/VH, patient calm and agreeable Results: Labs 05/02/25 05:22 05/02/25 05:22 Labs: Short CBC 05/01/25 Range/Units 17:51 WBC 5.0 (3.8-10.6) Thou/mm3 Hgb 10.6 L (13.5-16.0) g/dL Hct 31.5 L (41.0-53.0) % Plt Count 213 (140-440) Thou/mm3 BMP 05/01/25 17:51 Sodium 139 Potassium 4.5 Chloride 104 Carbon Dioxide 26.4 BUN 18 Creatinine 2.0 H Glucose 144 H Calcium 9.5 Cardiac Enzymes 05/01/25 Range/Units 17:51 Troponin I < 0.020 (0.0-0.045) ng/mL Liver Function 05/01/25 Range/Units 17:51 Total Bilirubin 0.4 (0.3-1.2) mg/dL AST 17 (0-34) U/L ALT 13 (10-49) U/L Alkaline Phosphatase 116 (46-116) U/L Albumin 4.3 (3.4-4.8) gm/dL Urine 05/01/25 Range/Units 22:10 Urine Color Yellow (Lt Yel-Yel) Urine Clarity Turbid A (Clear/Hazy) Urine pH 5.5 (5.0-7.0) Ur Specific [place] 1.030 (1.001-1.035) Urine Protein 1+ A (Neg - Trace) Urine Glucose (UA) Negative (Negative) Quality Measures Quality Measures none Advance care planning discussed with:: patient and child Medications Home Medications and Allergies Home Medications ?Medication ?Instructions ?Recorded ?Confirmed ?Type lisinopril 10 mg tablet 10 mg PO QDAY 08/18/1808/18 History metformin 1,000 mg tablet 1,000 mg PO BID 08/18/1804/28 History simvastatin 40 mg tablet 40 mg PO QDAY 08/18/1808/18 History Allergies Allergy/AdvReac Type Severity Reaction Status Date / Time No Known Allergies Allergy Verified 05/02/25 04:57 Visit Medications Acetaminophen (Acetaminophen 325 Mg Tablet) 650 mg PO Q6H PRN PRN Reason: PAIN SCALE 1-3 (mild Stop: 06/01/25 00:21 Amlodipine Besylate (Amlodipine Besylate 5 Mg Tablet) 5 mg PO X1 ONE Stop: 05/02/25 00:40 Apixaban (Apixaban 2.5 Mg Tablet) 5 mg PO BID ANTONY Stop: 06/01/25 08:59 Dextrose (Dextrose 50%-Water Inj 50 Ml Syringe) 25 ml IV Q15MIN PRN PRN Reason: BG 50-70 responsive npo pt Stop: 06/01/25 00:27 Dextrose (Dextrose 50%-Water Inj 50 Ml Syringe) 50 ml IV Q15MIN PRN PRN Reason: BG <50 OR BG <70 & pt unresponsive Stop: 06/01/25 00:27 Donepezil HCl (Donepezil Hcl 5 Mg Tablet) 5 mg PO HS ANTONY Stop: 06/01/25 20:59 Glucagon (Glucagon Inj 1 Mg Vial) 1 mg IM Q15MIN PRN PRN Reason: BG <70, and no IV access Magnesium Sulfate (Magnesium Sulfate Ivpb) 4 gm in 50 mls @ 12.5 mls/hr IV X1 ONE Stop: 05/02/25 04:29 Insulin Human Lispro (Insulin Lispro (Admelog) 1 Unit/0.01 Ml Unit) 0 unit SC [facility] ANTONY; Protocol Stop: 06/01/25 07:29 Ondansetron HCl (Ondansetron Inj 2 Mg/Ml Inj 2 Ml) 4 mg IVP Q6H PRN; Protocol PRN Reason: NAUSEA OR VOMITING Stop: 06/01/25 00:21 Risperidone (Risperidone 1 Mg Tablet) 1 mg PO QDAY ANTONY Stop: 06/01/25 08:59 Sennosides (Senna Tablet) 1 tab PO QDAY PRN; Protocol PRN Reason: constipation Stop: 06/01/25 00:21 Discontinued Medications Meclizine HCl (Meclizine Hcl 25 Mg Tablet) 50 mg PO X1 ONE Stop: 05/01/25 17:42 Last Admin: 05/01/25 18:32 Dose: 50 mg Assessment & Plan Plan 79-year-old male with a past medical history of hypertension, diabetes, hyperlipidemia, CAD with CABG (unknown number of vessels), and dementia presents to the ED with his daughter with a chief complaint of dizziness, headache and knee pain in ED he was f/t/h new onset 4:1 atrial flutter most likely contributing to patients dizziness. Patient admitted for overnight observation. #Atrial flutter 4:1 #CAD s/p CABG #Dizziness DIfferentials include arrhythmia vs orthostatic hypotension No findings on head CT. Most likely from new onset atrial flutter compared to 11/05 EKG. Plan: FUP with orthostatic vitals Consult cardiology for recs Started patient on eliquis 5mg PO BID No documented use of antiplatelets despite CABG due to CAD await med recs. #Anemia Dx: KALYAN, Vitamin deficiency B12 or folate, anemia of chronic disease. Less likely acute blood loss anemia, hemolytic anemia due to stable Hgb. Plan 'Ordered iron studies, iron, ferritin, reticulocyte counts. #Atelectasis versus pneumonia left base Most likely atelectasis b/c there are no clinical symptoms of infection indicating pneumonia. Continue to monitor patient for acute changes cinsider starting antibiotics. #Hypertension home meds lisinopril 20 mg Plan: Startted patient on amlodipine 5mg, D/c lisinoporil due to CKD stage 3 #Diabetes type 2,, Non insulin dependent Hold metformin, start on sliding scale insulin. FUP on AM A1C #Hyperlipidemia Continue simvastatin 40mg #Dementia Continue risperidone 1 mg am. Hold donepizil. Monitor for nighttime associated delirium. Health Maintenance Lines: PIV Diet: Cardiac/Carb consistent low Bowel: Senna PRN GI Proph: NA DVT Prohp: ELiquis Dispo: Cardiology consultation and ECHO for new arrhythmia Code: Full Patient seen and assessed with attending Dr. Marroquin note written by Dr. Cristo Velasquez PGY-1 Attending Provider Attestation/Addendum 79-year-old male patient with coronary artery disease status post CABG, diabetes, hypertension, dementia was admitted for dizziness and weakness found to be in atrial flutter. Patient will be admitted for further management. Continue cardiac monitoring. Check for coronary ischemia. Check electrolytes. I discussed with and supervised the resident physician who took care of this patient. I agree with the assessment and plan as above.
[2025-05-02 01:26] LABS: Immature Reticulocyte Fraction 15.2 % (2.3-13.4); Reticulocyte % (Auto) 0.9 % (0.5-1.5); Reticulocyte Absolute Auto 32.5 Biln/L (25.0-75.0); Reticulocyte Hgb Content 31.7 pg (28.0-35.0)
--- NOTE | 2025-05-02 01:30 | PC.NURSE ---
Cat Sitter assumes care of patient at this time, pt denies any pain or acute distress, bilingual interpreter utilized for translation, ID# [id number].
[2025-05-02] MEDS: Magnesium Sulfate 4 GM Ivpb 4 GM/50 ML BAG IV (02:01)
--- NOTE | 2025-05-02 02:30 | PC.NURSE ---
Report called to floor nurse, ALFREDO Presley
[2025-05-02] MEDS: hydrALAZINE INJ 20 MG/ML VIAL 10 MG IVP (05:21)
--- NOTE | 2025-05-02 05:56 | PC.NURSE ---
Pt's HR 35 A. belindatter, DR. Velasquez was made aware. Per MD, he will put order for atropine to give it for HR below 49. Pt resting in bed at this time. Pt has no complains of chest pain or discomfort at this time.
[2025-05-02 06:09] LABS: Basophils # (Auto) 0.1 Thou/mm3 (0.0-0.2); Basophils % (Auto) 1 % (0-2.5); Eosinophils # (Auto) 0.4 Thou/mm3 (0.0-0.5); Eosinophils % (Auto) 8 % (0-10); Hematocrit 31.4 % (41.0-53.0); Hemoglobin 10.5 g/dL (13.5-16.0); Immature Granulocytes Auto 0.04 Thou/mm3 (0.00-0.00); Lymphocytes # (Auto) 1.5 Thou/mm3 (1.0-4.8); Lymphocytes % (Auto) 28 % (10-50); Mean Corpuscular HGB Conc 33.4 g/dl (31.0-37.0); Mean Corpuscular Hemoglobin 27.6 pg (25.0-35.0); Mean Corpuscular Volume 82 fL (80-100); Monocytes # (Auto) 0.6 Thou/mm3 (0.0-0.8); Monocytes % (Auto) 11 % (0-12); Neutrophils # (Auto) 2.7 Thou/mm3 (1.8-7.7); Neutrophils % (Auto) 51 % (37-80); Nucleated Red Blood Cell # 0.00 Thou/mm3 (0.00-0.00); Nucleated Red Blood Cell % 0 /100 WBC (0); Platelet Count 202 Thou/mm3 (140-440); RDW Standard Deviation 46.8 fL (35.1-43.9); Red Blood Count 3.81 Miln/mm3 (4.50-5.90); White Blood Count 5.4 Thou/mm3 (3.8-10.6)
[2025-05-02 06:37] LABS: Ferritin 29 ng/mL (10.5-307.3); Iron 34 mcg/dL (65-175); Percent Iron Saturation 13 % (20-55); Total Iron Binding Capacity 254 mcg/dL (250-425); Unsaturated Iron Binding 220 (225-295)
[2025-05-02 06:42] LABS: Anion Gap 10 (7-16); BUN/Creatinine Ratio 11 Ratio (12-20); Blood Urea Nitrogen 19 mg/dL (9-23); Calcium 9.1 mg/dL (8.3-10.6); Carbon Dioxide 26.2 mMol/L (20.0-31.0); Chloride 106 mMol/L (98-107); Creatinine (Component) 1.8 mg/dL (0.6-1.3); Estimated Creatinine Clearance 28.9 mL/min (>60); Glucose 122 mg/dL (74-106); Osmolality,Calculated 286 (275-295); Potassium 4.1 mMol/L (3.4-5.1); Sodium 142 mMol/L (136-145); Thyroid Stimulating Hormone 1.40 uIU/mL (0.55-4.78); eGFR 38 See Note
[2025-05-02 06:43] LABS: Glucose Estimated Average 183 mg/dL (80-131); Hemoglobin A1C 8.0 % Hgb (4.8-6.0)
--- NOTE | 2025-05-02 08:00 | EKG_ITS ---
[facility] Test Date: 2025-05-02 Pat Name: GEREMIAS OLMEDO [facility] Gender: Male Manager Simulation: MAIN : 1945 Requested By: Ana Maria Ferrari Order Number: [id number] Reading MD: Ana Maria Ferrari Measurements Intervals [place] Rate: 48 P: [place]: QRS: 23 QRSD: 106 T: 16 QT: 496 QTc: 445 Interpretive Statements ATRIAL FLUTTER/TACHYCARDIA WITH SLOW VENTRICULAR RESPONSE MINIMAL ST DEPRESSION PROLONGED QT INTERVAL Compared to ECG 11/09/2024 12:01:38 ST (T wave) deviation now present Prolonged QT interval now present Supraventricular rhythm no longer present /store/S0/[id number]
[2025-05-02] MEDS: APIXABAN 2.5 MG TABLET 5 MG PO ×2 (08:20→20:38)
--- NOTE | 2025-05-02 09:35 | PC.SS ---
Patient is a 79 year old male who presents to the hospital for new onset A flutter. LIQUID NATURAL GAS PLANT OPERATOR made face to face contact with patient. Patient was not alert and oriented. At bedside was his daughter Inés Reyes. LIQUID NATURAL GAS PLANT OPERATOR spoke to patient?s daughter who confirmed demographic information about patient. Daughter reported that patient lives alone and uses walker and cane to ambulate at home. Patient?s daughter stated that her sister Janet Mast visits patient at home every day. Patient daughter stated that patients PCP is Dr. Armando Garcia, his musical engineer is Dr. Kenyatta Kelsey, pharmacy is [facility] on [address]. Daughter Inés spoke to father and sister and stated that medical decision maker in the event he is unable to make her own medical decisions would be his daughter, Inés Reyes [phone]. Patients daughter stated that once medically d/c patient will return home, daughter will provide transportation. Family stated no other concerns or questions for LIQUID NAT[employer] G[employer] PLANT OPERATOR. d/c: home, daughter provide transportation PCP: DR. GARCIA Anesthesiologist Assistant Certified: Dr You Alternate Medical decision maker: Inés Reyes
[2025-05-02] MEDS: INSULIN LISPRO (AdmeLOG) 1 UNIT/0.01 ML UNIT SC (12:52)
--- NOTE | 2025-05-02 14:40 | ESPR_ITS ---
Documentation for date of: 05/02/25 Overnight admission. Patient admitted given for atrila flutter with slow ventricular response (SVR). EKG noted to have atrial flutter in leads II, III, and aFV w/ V1 positive deflection, suggestive of atrial flutter. SVR rate unclear source as patient does not take beta blockers or calcium channel blockers that would lead to Atrial Flutter w/ SVR. 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 Patient had several bodies of similar medication including Simvastatin and Atorvastatin. Risperadone listed twice. Donepezil has been known to lead to rosangela cardia, currently holding. Anemia noted, no signs of active bleeding. Worsening CKD. Atropine on board, given if hemodynamically unstable. Pending Cardio recommendations. Subjective Subjective Interval history: Patient was seen and evaluated bedside today along with his daughter through an four corner former machine operator (ID- [id number]). Per daughter, the patient experienced dizziness yesterday. In addition, daughter stated that the patient has not complained of chest pain, shortness of breath, or palpitations. Patient had not experienced a similar previous episode. Patient was resting comfortably and did not appear to be in any acute distress. Patient was bradycardic in the morning (HR in the high 30s to 40s). Plan for echo. Consulted cardiology, Dr. Esteves, appreciate recommendations. Exam Vital Signs Temp Pulse Resp BP Pulse Ox O2 Del Method 97.8 F 78 20 106/50 L 98 Room Air 05/02/25 12:05/02/25 12:05/02/25 12:05/02/25 12:05/02/25 12:05/02/25 12:00 Narrative Exam General Appearance: Alert & Oriented to person, place, time, and condition; well-nourished male who is lying in bed in no acute distress. HEENT: Skull symmetrical and atraumatic. Conjunctivae pink and moist. Patient is visually impaired. External ear without lesion or discharge. Straight, nares patient, mucosa pink, no discharge. No thyroid nodule appreciated. No cervical lymphadenopathy. Cardio: Normal Rate and Rhythm with S1 and S2 heart sounds. No murmurs or extra heart sounds auscultated. No bruits on carotid auscultation. No peripheral edema or cyanosis. Lungs: Symmetric with good expansion. Chest and back non-tender. Breath sounds vesicular without crackles, wheezing or rhonchi Abdomen: Non-tender, Non-distended, Normal Reactive Bowel Sounds Neuro: Alert, cooperative, oriented to person, place, and time. Speech clear. CN grossly intact. Upper motor strength 5/5 and Lower motor strength 5/5. Sensation intact. Objective Labs 05/03/25 04:38 05/03/25 04:38 Labs: Laboratory Results - last 24 hr 05/01/25 05/01/25 05/02/25 17:51 22:10 01:01 WBC 5.0 RBC 3.81 L Hgb 10.6 L Hct 31.5 L MCV 83 MCH 27.8 MCHC 33.7 RDW Std Deviation 47.1 H Plt Count 213 Neut % (Auto) 53 Lymph % (Auto) 27 [place] % (Auto) 11 Eos % (Auto) 8 Baso % (Auto) 1 Neut # (Auto) 2.7 Lymph # (Auto) 1.4 [place] # (Auto) 0.5 Eos # (Auto) 0.4 Baso # (Auto) 0.0 Immature Gran # (Auto) 0.02 H Absolute Nucleated RBC 0.00 Immature Gran % 0 Nucleated RBC % 0 Retic Count (auto) 0.9 Absolute Retic 32.5 Immature Retic Fraction 15.2 H Retic Hgb Content CHr 31.7 Sodium 139 Potassium 4.5 Chloride 104 Carbon Dioxide 26.4 Anion Gap 9 BUN 18 Creatinine 2.0 H Estim Creat Clear Calc Not Performed. eGFR 34 L BUN/Creatinine Ratio 9 L Glucose [address] Glu mg/dL Hemoglobin A1c Calculated Osmolality 282 Calcium 9.5 Corrected Calcium 9.5 Magnesium 1.6 Iron TIBC Iron Saturation Unsat Iron Binding Ferritin Total Bilirubin 0.4 AST 17 ALT 13 Alkaline Phosphatase 116 Troponin I < 0.020 B-Natriuretic Peptide 146 H Total Protein 6.8 Albumin 4.3 Globulin 2.5 Albumin/Globulin Ratio 1.7 TSH Ur Collection Type Clean Catch Urine Color Yellow Urine Clarity Turbid A Urine pH 5.5 Ur Specific [place] 1.030 Urine Protein 1+ A Urine Glucose (UA) Negative Urine Ketones Trace Urine Blood Negative Urine Nitrite Negative Urine Bilirubin Negative Urine Urobilinogen (Auto) 3.0 Ur Leukocyte Esterase Positive Urine RBC 3 Urine WBC 6 H Ur Squamous Epith Cells 1 Urine Bacteria None Hyaline Casts 1 05/02/25 05:22 WBC 5.4 RBC 3.81 L Hgb 10.5 L Hct 31.4 L MCV 82 MCH 27.6 MCHC 33.4 RDW Std Deviation 46.8 H Plt Count 202 Neut % (Auto) 51 Lymph % (Auto) 28 [place] % (Auto) 11 Eos % (Auto) 8 Baso % (Auto) 1 Neut # (Auto) 2.7 Lymph # (Auto) 1.5 [place] # (Auto) 0.6 Eos # (Auto) 0.4 Baso # (Auto) 0.1 Immature Gran # (Auto) 0.04 H Absolute Nucleated RBC 0.00 Immature Gran % 1 H Nucleated RBC % 0 Retic Count (auto) Absolute Retic Immature Retic Fraction Retic Hgb Content CHr Sodium 142 Potassium 4.1 Chloride 106 Carbon Dioxide 26.2 Anion Gap 10 BUN 19 Creatinine 1.8 H Estim Creat Clear Calc 28.9 L eGFR 38 L BUN/Creatinine Ratio 11 L Glucose [address] Glu mg/dL 183 H Hemoglobin A1c 8.0 H Calculated Osmolality 286 Calcium 9.1 Corrected Calcium Magnesium Iron 34 L TIBC 254 Iron Saturation 13 L Unsat Iron Binding 220 L Ferritin 29 Total Bilirubin AST ALT Alkaline Phosphatase Troponin I B-Natriuretic Peptide Total Protein Albumin Globulin Albumin/Globulin Ratio TSH 1.40 Ur Collection Type Urine Color Urine Clarity Urine pH Ur Specific [place] Urine Protein Urine Glucose (UA) Urine Ketones Urine Blood Urine Nitrite Urine Bilirubin Urine Urobilinogen (Auto) Ur Leukocyte Esterase Urine RBC Urine WBC Ur Squamous Epith Cells Urine Bacteria Hyaline Casts Quality Measures Quality Measures none Advance care planning discussed with:: patient Assessment & Plan Assessment Current Active Medications: Generic Name Dose Route Start Last Admin Trade Name Dasia PRN Reason Stop Dose Admin Acetaminophen 650 mg 05/02/25 00:22 Acetaminophen 325 Mg Tablet PO 06/01/25 00:21 Q6H PRN PAIN SCALE 1-3 (mild Amlodipine Besylate 5 mg 05/02/25 09:00 05/02/25 10:29 Amlodipine Besylate 5 Mg Tablet PO 06/01/25 08:59 5 mg QDAY ANTONY Administration Apixaban 5 mg 05/02/25 09:00 05/02/25 08:20 Apixaban 2.5 Mg Tablet PO 06/01/25 08:59 5 mg BID ANTONY Administration Atropine Sulfate 0.5 mg 05/02/25 06:11 Atropine Sulf Inj 0.4 Mg/Ml Vial IV Q5MIN PRN HR <40 and symptomatic Dextrose 25 ml 05/02/25 00:28 Dextrose 50%-Water Inj 50 Ml Syringe IV 06/01/25 00:27 Q15MIN PRN BG 50-70 responsive npo pt Dextrose 50 ml 05/02/25 00:28 Dextrose 50%-Water Inj 50 Ml Syringe IV 06/01/25 00:27 Q15MIN PRN BG <50 OR BG <70 & pt unresponsive Donepezil HCl 5 mg 05/02/25 21:00 Donepezil Hcl 5 Mg Tablet PO 06/01/25 20:59 HS ANTONY Glucagon 1 mg 05/02/25 00:28 Glucagon Inj 1 Mg Vial IM Q15MIN PRN BG <70, and no IV access Insulin Human Lispro 0 unit 05/02/25 07:30 05/02/25 12:52 Insulin Lispro (Admelog) 1 Unit/0.01 Ml Unit SC 06/01/25 07:29 1 unit ACHS ANTONY Administration Protocol Ondansetron HCl 4 mg 05/02/25 00:22 Ondansetron Inj 2 Mg/Ml Inj 2 Ml IVP 06/01/25 00:21 Q6H PRN NAUSEA OR VOMITING Protocol Risperidone 1 mg 05/02/25 09:00 05/02/25 08:20 Risperidone 1 Mg Tablet PO 06/01/25 08:59 1 mg QDAY ANTONY Administration Sennosides 1 tab 05/02/25 00:22 Senna Tablet PO 06/01/25 00:21 QDAY PRN constipation Protocol Plan Plan Patient is a 79 year old visually impaired male with past medical history of CAD s/p CABG (10 years ago, Og, CATHERINE, number of vessels unknown), HTN, HLD, non- insulin dependent type 2 diabetes mellitus, and dementia who presented to the ED 05/01 with two day history dizziness and headaches and was admitted overnight for new-onset 4 to 1 atrial flutter. Cardiology consulted, Dr. Esteves and plan for echocardiogram. #New-Onset Atrial Flutter (4:1) w/ slow ventricular response #Atrial Fluter (SVR) Patient presented to the ED with complaints of dizziness and headaches for the past day. Patient and patient's family denied previous similar episodes. Patient denied chest pain, shortness of breath, and palpitations. Possible reasons: polypharmacy, as patient is on multiple drugs, including drugs such as donepezil that can slow down an individuals heart rate due to the anticholinesterase properties; hypertension due to cardiac remodeling and increased strain on blood vessels leading to less effective cardiac output; CAD leading to diminished perfusion and slowing of the heart rate. EKG 05/01 demonstrated findings consistent with 4:1 atrial flutter with slow ventricular response HR 57 EKG 05/02 demonstrated findings constent with 4:1 atrial flutter with slow ventricular response HR 48 Plan: -Continue Eliquis 5 mg PO QD -Atropine 0.5 mg IV Q15MIN PRN -Monitor patient's BP and HR, follow-up EKG #Hypertension Patient has a long standing history of hypertension given CAD with CABG in the past Plan: -Start Lisinopril 10 mg PO QD tomorrow 05/03 -Discontinued Amlodipine 5 mg PO QD -Monitor BP given the patient's slow ventricular response #Type 2 Diabetes Mellitus, non-insulin #Hyperglycemia Patient has a history of non-insulin dependent type 2 diabetes mellitus. Patient has been on metformin previously. Pertinent labs: 05/02 A1C 8.0 glucose 122 FSBG 173 Plan: -Insulin Sliding Scale #Chronic Kidney Disease, Stage IIIB Patient's baseline Cr has been around 2 since the beginning of this year. Pertinent labs: 05/02 BUN 19 Cr 1.8 GFR 38 Plan: -Continue to monitor renal panel for acute changes in renal function #Normocytic Normochromic Anemia Patient has a long standing history of decreased hemoglobin and hematocrit levels. This is most likely due to chronic disease, given the patient has a history of both HLD and diabetes, placing increased metabolic stress on his body. Pertinent labs: 05/02 MCV 82 RBC 3.81 Hgb 10.5 Hct 31.4 Iron 34 TIBC 254 Iron Sat 13 Ferritin 29 Retic count 32.5 Plan: -Monitor CBC for acute changes -Blood tranfusion ig Hgb <7 or <8 with active bleeding #CAD s/p Stents #Hyperlipidemia Patient presented with both atorvastatin and simvastatin as part of his medications. Given patient's age, ASCVD is not relevant. Patient likely has long-standing HLD leading to significant coronary artery disease. Pertinent labs: 03/20/25 TG 79 TC 117 LDL 66 HDL 35 Echo (05/02/2025): Normal LV size and Function. Mild LVH. EF 55-60%. Diastolic Dysfucntion present but could not be graded because of atrial flutter. Plan: -Restart atorvastatin 20 mg PO QHS tonight 05/02 -Monitor with repeat lipid panel #Dementia Patient has a history of dementia, but still lives alone. Per one of his daughters, the daughters take check in with the patient once a day by going to his residence and helping him with his medications. Plan: -Restart Escitalopram 5 mg PO QD tonight 05/02 -Holding Donepezil 5 mg PO QHS -Holding Risperidone 0.5 mg PO QHS #Atelectasis vs. #Left lower lobe pneumonia CXR 05/01 demonstrated findings consistent with either atelectasis or pneumonia of the left lower lobe of the lung. Given the patient's lack of leukocytosis and fever, atelectasis is more likely. Plan: -Continue to monitor CBC and vitals -Repeat CXR if patient becomes symptomatic #Left Knee Osteoarthritis #Tricompartment Osteoarthritis Patient has complained of left knee pain for the past couple of years. Knee XR 05/01 demonstrated findings consistent with tricompartment arthritis of the left knee, possibly contributing to the patient's instability while walking. Plan: -Follow-up outpatient with PCP, orthopedics if necessary for conservative management Health Maintenance: Lines: PIV Diet: Cardiac Bowel: Senna GI prophylaxis: None DVT prophylaxis: SCD Dispo: Consulted cardiology, Dr. Esteves, appreciate recommendations Code: Full Case reviewed with attending Dr. Vides and senior resident Dr. Banda. Ana Maria Ferrari MS-4 - The patient's plan was discussed with attending Dr. Peewee Banda MD PGY2 Internal Medicine Attending Provider Attestation/Addendum I have examined the patient, reviewed labs and imaging findings, discussed the case with the resident(s), and reviewed entered orders. I agree with the plan of care as outlined in this note, with these additional summaries/recommendations: Patient seen at bedside. Patient diagnosed with new onset atrial flutter with slow ventricular response with rates into the 30s. Atropine as needed if patient becomes symptomatic. Cardiology following, recommendations appreciated. Not requiring rate or rhythm control medications at this time. [id number] score greater than 2 and started on oral Eliquis for anticoagulation. Hold home donepezil and risperidone in the setting of bradycardia. Keep magnesium greater than 2 and potassium greater than 4. Unclear trigger for new onset atrial flutter although patient does have a history of underlying coronary artery disease. Continue insulin sliding scale for diabetes mellitus type 2. Patient's underlying CKD appears stable and relatively close to baseline, continue to monitor. Avoid nephrotoxic agents and renally dose medications. Continue home antihypertensives and monitor hemodynamics closely. Patient updated on the plan and agreement. All questions answered to satisfaction. Please see residents note for additional details and management. Dr. Peewee MD
--- NOTE | 2025-05-02 15:17 | PC.SS ---
rounding note: pending cardiology consult
--- NOTE | 2025-05-02 17:00 | ESCONSULT_ITS ---
HPI Data of Consult Requesting Physician: Audie Jeff MD Admitting Provider: Audie Jeff MD Attending Provider: Audie Jeff MD Primary Care Provider: Physician No Primary/Family Consult Narrative History of present illness: The patient is a 79-year-old male with past medical history of hypertension, diabetes mellitus type 2, hyperlipidemia, CAD s/p CABG, dementia, and osteoarthritis presented to ED on 05/01/2025 with chief complaint of dizziness, headache and knee pain. The patient is a poor historian, and history was obtained from the family members at the bedside. The patient has been having knee pain for the past 2 months, affecting his ambulation, but he is neck pain and dizziness has started about 2 days ago. He reported that, his dizziness has been affecting his balance, but denied any chest pain, SOB, palpitations, orthopnea or PND, or leg swelling. The patient lives alone and one of his 2 daughters visits him every day. 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 During my evaluation, his vitals were stable with heart rate ranging from 46-51, saturating 96% on room air. Labs revealed hemoglobin 10.5, sodium 142, potassium 4.1, bicarb 26.2, anion gap 10, BUN 19, creatinine 1.8, GFR 38, A1c 8.0, iron panel revealing KALYAN. TSH 1.4. EKG revealed a flutter with 4:1 conduction, CT brain was negative for any acute hemorrhage, mass effect or midline shift, and x-ray chest revealed normal heart rate, CABG, atelectasis versus mild pneumonia of left base. PMH: As mentioned above Surgical history: CABG Medications: Donepezil 5 mg, ibuprofen 600 mg, lisinopril 20 mg, metformin 1000 mg, risperidone 1 mg and 0.5 mg, simvastatin 40 mg Allergies: No known allergies Family history: Unremarkable Social history: Lives alone, one of her 2 daughter visits him every day, former drinker, denied ever smoking or illicit drug use Cardiology consultation was done for further management of new onset atrial flutter. cc:: cc: Audie Jeff MD Review of Systems Review of Systems Systems Reviewed: All systems reviewed, normal except as documented (Above) Exam Vital Signs Temp Pulse Resp BP Pulse Ox O2 Del Method 97.8 F 60 18 120/58 L 98 Room Air 05/02/25 16:00 05/02/25 16:00 05/02/25 16:00 05/02/25 16:00 05/02/25 16:00 05/02/25 16:00 Narrative Exam General: No acute distress, Alert and Oriented x 3 HEENT: Moist mucous membranes, oropharynx clear, visually impaired Neck: Supple, No masses, No JVD CVS: S1S2 Regular rate and rhythm, No murmurs, rubs or gallops Lungs: Clear to auscultation with no accessory use, no wheeze no rhonchi Abd: Soft, NT/ND, +BS, no organomegaly Ext: No edema, warm and well perfused Skin: No rash Psych: Appropriate mood and affect Results Labs 05/02/25 05:22 05/02/25 05:22 Labs: Short CBC 05/01/25 05/02/25 Range/Units 17:51 05:22 WBC 5.0 5.4 (3.8-10.6) Thou/mm3 Hgb 10.6 L 10.5 L (13.5-16.0) g/dL Hct 31.5 L 31.4 L (41.0-53.0) % Plt Count 213 202 (140-440) Thou/mm3 BMP 05/01/25 05/02/25 17:51 05:22 Sodium 139 142 Potassium 4.5 4.1 Chloride 104 106 Carbon Dioxide 26.4 26.2 BUN 18 19 Creatinine 2.0 H 1.8 H Glucose 144 H 122 H Calcium 9.5 9.1 Cardiac Enzymes 05/01/25 Range/Units 17:51 Troponin I < 0.020 (0.0-0.045) ng/mL Liver Function 05/01/25 Range/Units 17:51 Total Bilirubin 0.4 (0.3-1.2) mg/dL AST 17 (0-34) U/L ALT 13 (10-49) U/L Alkaline Phosphatase 116 (46-116) U/L Albumin 4.3 (3.4-4.8) gm/dL Urine 05/01/25 Range/Units 22:10 Urine Color Yellow (Lt Yel-Yel) Urine Clarity Turbid A (Clear/Hazy) Urine pH 5.5 (5.0-7.0) Ur Specific [place] 1.030 (1.001-1.035) Urine Protein 1+ A (Neg - Trace) Urine Glucose (UA) Negative (Negative) Quality Measures Quality Measures none Advance care planning discussed with:: patient and child Medications Home Medications and Allergies Home Medications ?Medication ?Instructions ?Recorded ?Confirmed ?Type lisinopril 10 mg tablet 10 mg PO QDAY 08/18/1805/02 History metformin 1,000 mg tablet 1,000 mg PO BID 08/18/18 History simvastatin 40 mg tablet 40 mg PO QDAY 08/18/1805/02 History Sentry Senior silver PO QDAY 05/02/25 History aspirin 325 mg tablet 325 mg PO QDAY 05/02/2504/12 History atorvastatin 20 mg tablet 20 mg PO QPM 05/02/25 History escitalopram oxalate 5 mg tablet 5 mg PO QDAY 05/02/25 05/02/25 History losartan 50 mg tablet (Cozaar) 50 mg PO QDAY 05/02/25 05/02/25 History risperidone 0.5 mg tablet 0.5 mg PO .qhs 05/02/2504/12 History (Risperdal) vibegron 75 mg tablet (Gemtesa) 75 mg PO QDAY 05/02/25 05/02/25 History Allergies Allergy/AdvReac Type Severity Reaction Status Date / Time No Known Allergies Allergy Verified 05/02/25 04:57 Visit Medications Acetaminophen (Acetaminophen 325 Mg Tablet) 650 mg PO Q6H PRN PRN Reason: PAIN SCALE 1-3 (mild Stop: 06/01/25 00:21 Amlodipine Besylate (Amlodipine Besylate 5 Mg Tablet) 5 mg PO QDAY [facility] Stop: 06/01/25 08:59 Last Admin: 05/02/25 10:29 Dose: 5 mg Apixaban (Apixaban 2.5 Mg Tablet) 5 mg PO BID [facility] Stop: 06/01/25 08:59 Last Admin: 05/02/25 08:20 Dose: 5 mg Atropine Sulfate (Atropine Sulf Inj 0.4 Mg/Ml Vial) 0.5 mg IV Q5MIN PRN PRN Reason: HR <40 and symptomatic Dextrose (Dextrose 50%-Water Inj 50 Ml Syringe) 25 ml IV Q15MIN PRN PRN Reason: BG 50-70 responsive npo pt Stop: 06/01/25 00:27 Dextrose (Dextrose 50%-Water Inj 50 Ml Syringe) 50 ml IV Q15MIN PRN PRN Reason: BG <50 OR BG <70 & pt unresponsive Stop: 06/01/25 00:27 Donepezil HCl (Donepezil Hcl 5 Mg Tablet) 5 mg PO HS [facility] Stop: 06/01/25 20:59 Glucagon (Glucagon Inj 1 Mg Vial) 1 mg IM Q15MIN PRN PRN Reason: BG <70, and no IV access Insulin Human Lispro (Insulin Lispro (Admelog) 1 Unit/0.01 Ml Unit) 0 unit SC [facility]; Protocol Stop: 06/01/25 07:29 Last Admin: 05/02/25 16:28 Dose: Not Given Ondansetron HCl (Ondansetron Inj 2 Mg/Ml Inj 2 Ml) 4 mg IVP Q6H PRN; Protocol PRN Reason: NAUSEA OR VOMITING Stop: 06/01/25 00:21 Risperidone (Risperidone 1 Mg Tablet) 1 mg PO QDAY [facility] Stop: 06/01/25 08:59 Last Admin: 05/02/25 08:20 Dose: 1 mg Sennosides (Senna Tablet) 1 tab PO QDAY PRN; Protocol PRN Reason: constipation Stop: 06/01/25 00:21 Discontinued Medications Amlodipine Besylate (Amlodipine Besylate 5 Mg Tablet) 5 mg PO X1 ONE Stop: 05/02/25 00:40 Last Admin: 05/02/25 02:01 Dose: 5 mg Amlodipine Besylate (Amlodipine Besylate 5 Mg Tablet) 5 mg PO QDAY [facility] Stop: 06/01/25 08:59 Atropine Sulfate (Atropine Sulf Inj 1 Mg/Ml Vial) 0.5 mg IVP Q5MIN PRN PRN Reason: HR <40 and symptomatic Hydralazine HCl (Hydralazine Inj 20 Mg/Ml Vial) 10 mg IVP X1 ONE Stop: 05/02/25 02:49 Last Admin: 05/02/25 05:21 Dose: 10 mg Magnesium Sulfate (Magnesium Sulfate Ivpb) 4 gm in 50 mls @ 12.5 mls/hr IV X1 ONE Stop: 05/02/25 04:29 Last Admin: 05/02/25 02:01 Dose: 12.5 mls/hr Meclizine HCl (Meclizine Hcl 25 Mg Tablet) 50 mg PO X1 ONE Stop: 05/01/25 17:42 Last Admin: 05/01/25 18:32 Dose: 50 mg Assessment & Plan Plan The patient is a 79-year-old male with past medical history of hypertension, diabetes mellitus type 2, hyperlipidemia, CAD s/p CABG, dementia, and osteoarthritis presented to ED on 05/01/2025 with chief complaint of dizziness, headache and knee pain. EKG revealed a flutter with 4:1 conduction, with slow ventricular rate Cardiology consultation was done for further management of new onset atrial flutter. #Dizziness 2/2 #New onset atrial flutter with slow ventricular rate Etiology currently unknown, likely secondary to advanced age EKG revealed 4:1 conduction The patient rates has been stable between 45-50 Patient denied any chest pain, palpitations, orthopnea or PND -Telemetry monitoring - Maintain potassium and magnesium greater than 4 and 2 respectively at all the time - May consider electric cardioversion by tomorrow afternoon if the patient does not convert back to sinus rhythm by then - Continue with Eliquis 5 Mg twice daily - Stop Donepezil completely #Hypertension - Lisinopril 10 mg daily #CAD s/p stents #Hyperlipidemia Lipid panel revealed recently, total cholesterol 117, LDL 66, HDL 35 - Continue with aspirin 81 Mg daily - Continue with atorvastatin 20 Mg daily #Dementia #Atelectasis versus left lower lobe pneumonia #Left knee osteoarthritis #Tricompartment osteoarthritis #Normocytic normochromic anemia #Chronic kidney disease, stage IIIb #Diabetes mellitus type 2 - Management deferred to primary hospitalist team Thank you for cardiology consultation. We appreciate the opportunity to participate in this patient care. We will continue to follow-up on this patient. The patient's management plan was discussed with my attending physician MD Giuseppe Meléndez MD, PGY
[2025-05-02] MEDS: ESCITALOPRAM OXALATE 10 MG TABLET 5 MG PO (19:56)
[2025-05-02] MEDS: DONEPEZIL HCL 5 MG TABLET PO (20:05)
[2025-05-02] MEDS: ATORVASTATIN CALCIUM 20 MG TABLET PO (20:06)
[2025-05-03] VITALS (59 sets, daily range): BP systolic 95–154; BP diastolic 53–83; PULSE 39–74; RESP 0–48; TEMP 36–37; O2SAT 95–99
[2025-05-03 05:47] LABS: Basophils # (Auto) 0.0 Thou/mm3 (0.0-0.2); Basophils % (Auto) 1 % (0-2.5); Eosinophils # (Auto) 0.4 Thou/mm3 (0.0-0.5); Eosinophils % (Auto) 7 % (0-10); Hematocrit 29.6 % (41.0-53.0); Hemoglobin 9.9 g/dL (13.5-16.0); Immature Granulocytes Auto 0.02 Thou/mm3 (0.00-0.00); Immature Reticulocyte Fraction 18.6 % (2.3-13.4); Lymphocytes # (Auto) 1.4 Thou/mm3 (1.0-4.8); Lymphocytes % (Auto) 24 % (10-50); Mean Corpuscular HGB Conc 33.4 g/dl (31.0-37.0); Mean Corpuscular Hemoglobin 27.7 pg (25.0-35.0); Mean Corpuscular Volume 83 fL (80-100); Monocytes # (Auto) 0.6 Thou/mm3 (0.0-0.8); Monocytes % (Auto) 11 % (0-12); Neutrophils # (Auto) 3.3 Thou/mm3 (1.8-7.7); Neutrophils % (Auto) 57 % (37-80); Nucleated Red Blood Cell # 0.00 Thou/mm3 (0.00-0.00); Nucleated Red Blood Cell % 0 /100 WBC (0); Platelet Count 198 Thou/mm3 (140-440); RDW Standard Deviation 46.5 fL (35.1-43.9); Red Blood Count 3.58 Miln/mm3 (4.50-5.90); Reticulocyte % (Auto) 0.9 % (0.5-1.5); Reticulocyte Absolute Auto 33.3 Biln/L (25.0-75.0); Reticulocyte Hgb Content 31.9 pg (28.0-35.0); White Blood Count 5.8 Thou/mm3 (3.8-10.6)
[2025-05-03 06:01] LABS: Anion Gap 11 (7-16); BUN/Creatinine Ratio 12 Ratio (12-20); Blood Urea Nitrogen 21 mg/dL (9-23); Calcium 8.8 mg/dL (8.3-10.6); Carbon Dioxide 26.8 mMol/L (20.0-31.0); Chloride 105 mMol/L (98-107); Creatinine (Component) 1.8 mg/dL (0.6-1.3); Estimated Creatinine Clearance 29.2 mL/min (>60); Glucose 119 mg/dL (74-106); Magnesium 1.8 mg/dL (1.6-2.6); Osmolality,Calculated 288 (275-295); Phosphorous 3.4 mg/dL (2.4-5.1); Potassium 4.1 mMol/L (3.4-5.1); Sodium 143 mMol/L (136-145); eGFR 38 See Note
--- NOTE | 2025-05-03 08:42 | ESPR_ITS ---
Documentation for date of: 05/03/25 No overnight events. Patient examined at bedside. Patient denied chest pain or palpitations. Patient is currently NPO, pending OLAMIDE with possible cardioversion. Atrial Fibrillation w/ slow ventricular response-continue Apixaban. Patient would benefit from home health and per PT, requesting walker. Atropine PRN for unable heart block. Subjective Subjective Interval history: Patient was seen and evaluated today at bedside with his daughter and parts interpreter (ID- [id number]). Per daughter, patient did not complain of chest pain, shortness of breath, or palpitations last night or this morning. In addition, patient did not complain of headache or dizziness. Patient was resting comfortbaly and pulse was regular. Daughter confirmed she is the one that administers the patient's medications and that patient takes medications as prescribed. Daughter was made aware that patient is to specifically continue Eliquis 5 mg PO BID for atrial flutter and that Donepezil 5 mg PO QD is to be held per cardiology recommendations, Dr. Esteves. Plan for likely OLAMIDE cardioversion tonight, Dr. Esteves. Holding meds for procedure. Exam Vital Signs Temp Pulse Resp BP Pulse Ox O2 Del Method 98.6 F 67 16 139/83 H 95 Room Air 05/03/25 08:00 05/03/25 08:00 05/03/25 08:00 05/03/25 08:00 05/03/25 08:00 05/03/25 08:00 Narrative Exam General Appearance: Alert & Oriented to person, place, time, and condition; well-nourished male who is lying in bed in no acute distress. HEENT: Skull symmetrical and atraumatic. Conjunctivae pink and moist. Patient is visually impaired. External ear without lesion or discharge. Straight, nares patient, mucosa pink, no discharge. No thyroid nodule appreciated. No cervical lymphadenopathy. Cardio: Normal Rate and Rhythm with S1 and S2 heart sounds. No murmurs or extra heart sounds auscultated. No bruits on carotid auscultation. No peripheral edema or cyanosis. Lungs: Symmetric with good expansion. Chest and back non-tender. Breath sounds vesicular without crackles, wheezing or rhonchi Abdomen: Non-tender, Non-distended, Normal Reactive Bowel Sounds Neuro: Alert, cooperative, oriented to person, place, and time. Speech clear. CN grossly intact. Upper motor strength 5/5 and Lower motor strength 5/5. Sensation intact. Objective Labs 05/04/25 04:55 05/04/25 04:55 Labs: Laboratory Results - last 24 hr 05/03/25 04:38 WBC 5.8 RBC 3.58 L Hgb 9.9 L Hct 29.6 L MCV 83 MCH 27.7 MCHC 33.4 RDW Std Deviation 46.5 H Plt Count 198 Neut % (Auto) 57 Lymph % (Auto) 24 [place] % (Auto) 11 Eos % (Auto) 7 Baso % (Auto) 1 Neut # (Auto) 3.3 Lymph # (Auto) 1.4 [place] # (Auto) 0.6 Eos # (Auto) 0.4 Baso # (Auto) 0.0 Immature Gran # (Auto) 0.02 H Absolute Nucleated RBC 0.00 Immature Gran % 0 Nucleated RBC % 0 Retic Count (auto) 0.9 Absolute Retic 33.3 Immature Retic Fraction 18.6 H Retic Hgb Content CHr 31.9 Sodium 143 Potassium 4.1 Chloride 105 Carbon Dioxide 26.8 Anion Gap 11 BUN 21 Creatinine 1.8 H Estim Creat Clear Calc 29.2 L eGFR 38 L BUN/Creatinine Ratio 12 Glucose 119 H Calculated Osmolality 288 Calcium 8.8 Phosphorus 3.4 Magnesium 1.8 Quality Measures Quality Measures none Advance care planning discussed with:: patient Assessment & Plan Assessment Current Active Medications: Generic Name Dose Route Start Last Admin Trade Name Freq PRN Reason Stop Dose Admin Acetaminophen 650 mg 05/02/25 00:22 Acetaminophen 325 Mg Tablet PO 06/01/25 00:21 Q6H PRN PAIN SCALE 1-3 (mild Apixaban 5 mg 05/02/25 21:00 05/02/25 20:38 Apixaban 2.5 Mg Tablet PO 06/01/25 20:59 5 mg BID ANTONY Administration Aspirin 81 mg 05/03/25 09:00 Aspirin Ec 81 Mg Tabec PO 06/02/25 08:59 QDAY ANTONY Atorvastatin Calcium 20 mg 05/02/25 21:00 05/02/25 20:06 Atorvastatin Calcium 20 Mg Tablet PO 06/01/25 20:59 20 mg HS ANTONY Administration Atropine Sulfate 0.5 mg 05/02/25 06:11 Atropine Sulf Inj 0.4 Mg/Ml Vial IV Q5MIN PRN HR <40 and symptomatic Dextrose 25 ml 05/02/25 00:28 Dextrose 50%-Water Inj 50 Ml Syringe IV 06/01/25 00:27 Q15MIN PRN BG 50-70 responsive npo pt Dextrose 50 ml 05/02/25 00:28 Dextrose 50%-Water Inj 50 Ml Syringe IV 06/01/25 00:27 Q15MIN PRN BG <50 OR BG <70 & pt unresponsive Escitalopram Oxalate 5 mg 05/02/25 18:45 05/02/25 19:56 Escitalopram Oxalate 10 Mg Tablet PO 06/01/25 18:44 5 mg QDAY ANTONY Administration Glucagon 1 mg 05/02/25 00:28 Glucagon Inj 1 Mg Vial IM Q15MIN PRN BG <70, and no IV access Magnesium Sulfate 2 gm in 50 mls @ 25 mls/hr 05/03/25 07:40 Magnesium Sulfate Ivpb IV 05/03/25 09:39 X1 ONE Sodium Chloride 1,000 mls @ 75 mls/hr 05/03/25 08:33 Ns IV 05/03/25 21:52 .[id number] ONE Insulin Human Lispro 0 unit 05/02/25 21:00 05/03/25 07:28 Insulin Lispro (Admelog) 1 Unit/0.01 Ml Unit SC 06/01/25 20:59 Not Given ACHS ANTONY Protocol Lisinopril 10 mg 05/03/25 09:00 Lisinopril 2.5 Mg Tablet PO 06/02/25 08:59 QDAY ANTONY Ondansetron HCl 4 mg 05/02/25 00:22 Ondansetron Inj 2 Mg/Ml Inj 2 Ml IVP 06/01/25 00:21 Q6H PRN NAUSEA OR VOMITING Protocol Risperidone 1 mg 05/02/25 09:00 05/02/25 08:20 Risperidone 1 Mg Tablet PO 06/01/25 08:59 1 mg QDAY ANTONY Administration Sennosides 1 tab 05/02/25 00:22 Senna Tablet PO 06/01/25 00:21 QDAY PRN constipation Protocol Plan Plan Patient is a 79 year old visually impaired male with past medical history of CAD s/p CABG (10 years ago, [place], [place], number of vessels unknown), HTN, HLD, non- insulin dependent type 2 diabetes mellitus, and dementia who presented to the ED 05/01 with two day history dizziness and headaches and was admitted overnight for new-onset 4 to 1 atrial flutter. Cardiology consulted, Dr. Esteves, echocardiogram completed showing EF 55% with mild LVH and right ventricle systolic function mildly decreased. Plan for OLAMIDE cardioversion tonight, cardiology Dr. Esteves. #New-Onset Atrial Flutter (4:1) w/ slow ventricular response #Atrial Fluter (SVR) Patient presented to the ED with complaints of dizziness and headaches for the past day. Patient and patient's family denied previous similar episodes. Patient denied chest pain, shortness of breath, and palpitations. Possible reasons: polypharmacy, as patient is on multiple drugs, including drugs such as donepezil that can slow down an individuals heart rate due to the anticholinesterase properties; hypertension due to cardiac remodeling and increased strain on blood vessels leading to less effective cardiac output; CAD leading to diminished perfusion and slowing of the heart rate. EKG 05/01 demonstrated findings consistent with 4:1 atrial flutter with slow ventricular response HR 57 EKG 05/02 demonstrated findings constent with 4:1 atrial flutter with slow ventricular response HR 48 Plan: -Possible cardioversion this afternoon if patient does not return to sinus rhythm per cardiology recommendation Dr. Esteves, appreciate recommendations -Continue Eliquis 5 mg PO BID, per cardiology recommendation, Dr. Esteves -Atropine 0.5 mg IV Q15MIN PRN -Monitor patient's BP and HR, follow-up EKG #Hypertension Patient has a long standing history of hypertension given CAD with CABG in the past Plan: -Continue Lisinopril 10 mg PO QD -Discontinued Amlodipine 5 mg PO QD -Monitor BP given the patient's slow ventricular response #Type 2 Diabetes Mellitus, non-insulin #Hyperglycemia Patient has a history of non-insulin dependent type 2 diabetes mellitus. Patient has been on metformin previously. Pertinent labs: 05/02 A1C 8.0 glucose 122 FSBG 173 05/03 glucose 119 Plan: -Insulin Sliding Scale #Chronic Kidney Disease, Stage IIIB Patient's baseline Cr has been around 2 since the beginning of this year. Pertinent labs: 05/02 BUN 19 Cr 1.8 GFR 38 05/03 BUN 21 Cr 1.8 GFR 38 Plan: -Continue to monitor renal panel for acute changes in renal function #Normocytic Normochromic Anemia Patient has a long standing history of decreased hemoglobin and hematocrit levels. This is most likely due to chronic disease, given the patient has a history of both HLD and diabetes, placing increased metabolic stress on his body. Pertinent labs: 05/02 MCV 82 RBC 3.81 Hgb 10.5 Hct 31.4 Iron 34 TIBC 254 Iron Sat 13 Ferritin 29 Retic count 32.5 05/03 MCV 83 RBC 3.58 Hgb 9.9 Hct 29.6 Plan: -Monitor CBC for acute changes -Blood tranfusion if Hgb <7 or <8 with active bleeding #CAD s/p Stents #Hyperlipidemia Patient presented with both atorvastatin and simvastatin as part of his medications. Given patient's age, ASCVD is not relevant. Patient likely has long-standing HLD leading to significant coronary artery disease. Pertinent labs: 03/20/25 TG 79 TC 117 LDL 66 HDL 35 Echo 05/02/25: AV Peak velocity 140 cm/s AV PG 7.8 mmHg, trace MR and trace TR, mild LVH, right ventricular systolic function mildly decreased, Area cont eq vti peak 2.6cm2 Plan: -Continue atorvastatin 20 mg PO QHS -Monitor with repeat lipid panel #Dementia Patient has a history of dementia, but still lives alone. Per one of his daughters, the daughters take check in with the patient once a day by going to his residence and helping him with his medications. Plan: -Continue Escitalopram 5 mg PO QD -Continue Risperidone 0.5 mg PO QHS -Holding Donepezil 5 mg PO QHS per cardiology reccomendation, Dr. Esteves #Atelectasis vs. #Left lower lobe pneumonia CXR 05/01 demonstrated findings consistent with either atelectasis or pneumonia of the left lower lobe of the lung. Given the patient's lack of leukocytosis and fever, atelectasis is more likely. Plan: -Continue to monitor CBC and vitals -Repeat CXR if patient becomes symptomatic #Left Knee Osteoarthritis #Tricompartment Osteoarthritis Patient has complained of left knee pain for the past couple of years. Knee XR 05/01 demonstrated findings consistent with tricompartment arthritis of the left knee, possibly contributing to the patient's instability while walking. Plan: -Follow-up outpatient with PCP, orthopedics if necessary for conservative management Health Maintenance: Lines: PIV Diet: Cardiac Bowel: Senna GI prophylaxis: None DVT prophylaxis: SCD Dispo: Consulted cardiology, Dr. Esteves, appreciate recommendations Code: Full Case reviewed with attending Dr. Vides and senior resident Dr. Banda. Ana Maria Ferrari MS-4 - The patient's plan was discussed with attending Dr. Peewee Banda MD PGY2 Internal Medicine Attending Provider Attestation/Addendum I have examined the patient, reviewed labs and imaging findings, discussed the case with the resident(s), and reviewed entered orders. I agree with the plan of care as outlined in this note, with these additional summaries/recommendations: Patient & daughter seen at bedside. No acute overnight events. Patient diagnosed with new onset atrial flutter with slow ventricular response with rates into the 30s. Atropine as needed if patient becomes symptomatic. Cardiology following and patient will be taken for cardioversion. Patient and daughter are in agreement. Not requiring rate or rhythm control medications at this time. [id number] score greater than 2 and started on oral Eliquis for anticoagulation. Hold home donepezil and risperidone in the setting of bradycardia. Keep magnesium greater than 2 and potassium greater than 4. Unclear trigger for new onset atrial flutter although patient does have a history of underlying coronary artery disease. Continue insulin sliding scale for diabetes mellitus type 2. Patient's underlying CKD appears stable and relatively close to baseline, continue to monitor. Avoid nephrotoxic agents and renally dose medications. Continue home antihypertensives and monitor hemodynamics closely. Patient updated on the plan and agreement. All questions answered to satisfaction. Please see residents note for additional details and management. Dr. Peewee MD
--- NOTE | 2025-05-03 09:33 | PC.SS ---
-FINANCIAL COACH met with patient and patients daughter, Janet Mast ph:[phone] at bedside to confirm request for wheelchair and homehealth, no preferred HH agency identified. Pt. daughter requested specialized transport chair with loop lock hand breaks. ss to follow up with DME vendor [employer] to see if DME covered by insurance. Patients PCP is Dr. Graham.
[2025-05-03] MEDS: ESCITALOPRAM OXALATE 10 MG TABLET 5 MG PO (09:37)
[2025-05-03] MEDS: SODIUM CHLORIDE 0.9% 1000 ML 1,000 ML 75 ML IV (09:39)
--- NOTE | 2025-05-03 09:39 | PC.SS ---
WheelChairs Patients diagnosis creates mobility limitations that significantly impairs ability to participate in the patients activities of daily living either in their entirety, or in a reasonable time frame in the home and the patients mobility limitations can not be sufficiently resolved with an appropriately fitted cane or walker. Also the use of a manual wheelchair will sufficiently improve patients ability to participate in the activities of daily living in the home and the patient is willing to use the wheelchair that is provided in the home. The patient has some one in the home that is available, willing and able to provide assistance with the wheelchair
--- NOTE | 2025-05-03 10:17 | PC.SS ---
ss update: BODY MAN informed pt. and pt daughter at bedside that standard wheelchair will be provided through [facility]. BODY MAN sent DME referral to [facility] via fax. SS will follow up with [facility].
--- NOTE | 2025-05-03 11:27 | PC.SS ---
rounding note: Automation Qtp Tester following.
--- NOTE | 2025-05-03 11:43 | PC.SS ---
SS update: PEWTER FINISHER spoke to [employer] home furnishings sales representative, they stated that DME was ready for sheepskin pickler, family was informed.
--- NOTE | 2025-05-03 15:44 | PC.SS ---
Rounding note: Pt. pending cardio and OLAMIDE. AIRFRAME AND POWER PLANT MECHANIC reported to doctor that family would like home health.
--- NOTE | 2025-05-03 17:04 | ECHO_ITS ---
Transesophageal Echo Report Ht (in): 62 Wt (lb): 155 Exam Location: Echo Lab Status: Inpatient Keycase Assembler: StefanPreet glassiana Indications: Procedure Performed: BP: / HR: Technical Quality: Fair FINDINGS Left Ventricle Normal left ventricular size, wall thickness, systolic function with no obvious regional wall motion abnormalities. Normal left ventricular diastolic filling pattern for age. The ejection fraction is visually estimated at 50-55 %. Right Ventricle The right ventricle is normal in size and systolic function. Left Atrium The left atrium is normal by two-dimensional, color flow and Doppler imaging with no structural abnormalities, no thrombus formation present. Right Atrium The right atrium is normal by two-dimensional imaging, color flow and Doppler imaging with no structural abnormalities, no thrombus formation present. Atrial Appendages Thrombus present in the left atrial appendage. Atrial Septum The interatrial septum appears normal with no evidence of a shunt. Aorta The aorta is normal by two-dimensional, color flow and Doppler interrogation. Mitral Valve The mitral valve is normal by two-dimensional, color flow and Doppler interrogation. There is no significant mitral valve regurgitation, stenosis or prolapse. Aortic Valve The aortic valve is trileaflet and normal by two-dimensional, color flow and Doppler interrogation. There is no significant aortic valve regurgitation. Tricuspid Valve The tricuspid valve is normal by two-dimensional, color flow and Doppler interrogation. There is no significant tricuspid valve regurgitation. Pulmonic Valve The pulmonic valve is normal by two-dimensional, color flow and Doppler interrogation. There is no significant pulmonic valve regurgitation. Vessels The pulmonary artery appears normal. The inferior vena cava pulmonary and hepatic veins appear normal. Pericardium The pericardium is normal by two-dimensional imaging. There is no significant pericardial effusion. CONCLUSIONS Indication: R/O cardiac thrombus or clot Thrombus noted in the left atrial appendage measuring 0.5 to 1 cm. Bubble study negative for ASD or PFO. The LV is normal in size and systolic function. Estimated EF at 55-60 %. The RV is normal in size and systolic function. Trace MR and TR. Matthew Esteves (Electronically Signed) Final Date: 04 May 2025 22:49
--- NOTE | 2025-05-03 17:36 | ESPR_ITS ---
Documentation for date of: 05/03/25 Subjective Subjective Interval history: The patient was seen and examined at the bedside this morning. He denied any chest pain, palpitations, orthopnea or PND, SOB, and youth nutritional monitor was revealing 4:1 conduction atrial flutter. His vitals were stable with soft blood pressure, heart rate ranging from 45-50. Labs at baseline with hemoglobin 9.9, potassium 4.1, creatinine 1.8, magnesium 1.8. Patient underwent OLAMIDE this afternoon, and was found to have left atrial appendage thrombus, and that is why electrical cardioversion was not attempted. At the patient heart rate is well-controlled, and has been asymptomatic, no rate or rhythm control needed. Continue with the Eliquis 5 mg twice daily, aspirin 81 Mg daily and atorvastatin 81 Mg for now. The patient will get repeat OLAMIDE as an outpatient basis 4 weeks after Eliquis, and if no thrombus is seen, the patient will get elective cardioversion. Exam Vital Signs Temp Pulse Resp BP Pulse Ox O2 Del Method 96.8 F 74 16 112/64 95 Room Air 05/03/25 12:00 05/03/25 12:00 05/03/25 12:00 05/03/25 12:00 05/03/25 12:00 05/03/25 12:00 Narrative Exam General: No acute distress, Alert and Oriented x 3 HEENT: Moist mucous membranes, oropharynx clear, visually impaired Neck: Supple, No masses, No JVD CVS: regularly irregular rhythm, No murmurs, rubs or gallops Lungs: Clear to auscultation with no accessory use, no wheeze no rhonchi Abd: Soft, NT/ND, +BS, no organomegaly Ext: No edema, warm and well perfused Skin: No rash Psych: Appropriate mood and affect Objective Labs 05/04/25 04:55 05/04/25 04:55 Labs: Laboratory Results - last 24 hr 05/03/25 04:38 WBC 5.8 RBC 3.58 L Hgb 9.9 L Hct 29.6 L MCV 83 MCH 27.7 MCHC 33.4 RDW Std Deviation 46.5 H Plt Count 198 Neut % (Auto) 57 Lymph % (Auto) 24 [place] % (Auto) 11 Eos % (Auto) 7 Baso % (Auto) 1 Neut # (Auto) 3.3 Lymph # (Auto) 1.4 [place] # (Auto) 0.6 Eos # (Auto) 0.4 Baso # (Auto) 0.0 Immature Gran # (Auto) 0.02 H Absolute Nucleated RBC 0.00 Immature Gran % 0 Nucleated RBC % 0 Retic Count (auto) 0.9 Absolute Retic 33.3 Immature Retic Fraction 18.6 H Retic Hgb Content CHr 31.9 Sodium 143 Potassium 4.1 Chloride 105 Carbon Dioxide 26.8 Anion Gap 11 BUN 21 Creatinine 1.8 H Estim Creat Clear Calc 29.2 L eGFR 38 L BUN/Creatinine Ratio 12 Glucose 119 H Calculated Osmolality 288 Calcium 8.8 Phosphorus 3.4 Magnesium 1.8 Quality Measures Quality Measures none Advance care planning discussed with:: patient and child Assessment & Plan Assessment Current Active Medications: Generic Name Dose Route Start Last Admin Trade Name Freq PRN Reason Stop Dose Admin Acetaminophen 650 mg 05/02/25 00:22 Acetaminophen 325 Mg Tablet PO 06/01/25 00:21 Q6H PRN PAIN SCALE 1-3 (mild Apixaban 5 mg 05/02/25 21:00 05/03/25 09:39 Apixaban 2.5 Mg Tablet PO 06/01/25 20:59 Not Given BID ANTONY Aspirin 81 mg 05/03/25 09:30 05/03/25 09:39 Aspirin Ec 81 Mg Tabec PO 06/02/25 08:59 Not Given QDAY ANTONY Atorvastatin Calcium 20 mg 05/02/25 21:00 05/02/25 20:06 Atorvastatin Calcium 20 Mg Tablet PO 06/01/25 20:59 20 mg HS ANTONY Administration Atropine Sulfate 0.5 mg 05/02/25 06:11 Atropine Sulf Inj 0.4 Mg/Ml Vial IV Q5MIN PRN HR <40 and symptomatic Dextrose 25 ml 05/02/25 00:28 Dextrose 50%-Water Inj 50 Ml Syringe IV 06/01/25 00:27 Q15MIN PRN BG 50-70 responsive npo pt Dextrose 50 ml 05/02/25 00:28 Dextrose 50%-Water Inj 50 Ml Syringe IV 06/01/25 00:27 Q15MIN PRN BG <50 OR BG <70 & pt unresponsive Escitalopram Oxalate 5 mg 05/03/25 09:30 05/03/25 09:40 Escitalopram Oxalate 10 Mg Tablet PO 06/02/25 14:44 Not Given QDAY ANTONY Glucagon 1 mg 05/02/25 00:28 Glucagon Inj 1 Mg Vial IM Q15MIN PRN BG <70, and no IV access Sodium Chloride 1,000 mls @ 75 mls/hr 05/03/25 08:33 05/03/25 09:39 Ns IV 05/03/25 21:52 75 mls/hr .[id number] ONE Administration Insulin Human Lispro 0 unit 05/02/25 21:00 05/03/25 17:34 Insulin Lispro (Admelog) 1 Unit/0.01 Ml Unit SC 06/01/25 20:59 Not Given ACHS ANTONY Protocol Lisinopril 10 mg 05/03/25 09:00 05/03/25 09:36 Lisinopril 2.5 Mg Tablet PO 06/02/25 08:59 10 mg QDAY ANTONY Administration Ondansetron HCl 4 mg 05/02/25 00:22 Ondansetron Inj 2 Mg/Ml Inj 2 Ml IVP 06/01/25 00:21 Q6H PRN NAUSEA OR VOMITING Protocol Risperidone 1 mg 05/03/25 09:45 05/03/25 09:40 Risperidone 1 Mg Tablet PO 06/01/25 08:59 Not Given QDAY ANTONY Sennosides 1 tab 05/02/25 00:22 Senna Tablet PO 06/01/25 00:21 QDAY PRN constipation Protocol Plan The patient is a 79-year-old male with past medical history of hypertension, diabetes mellitus type 2, hyperlipidemia, CAD s/p CABG, dementia, and osteoarthritis presented to ED on 05/01/2025 with chief complaint of dizziness, headache and knee pain. EKG revealed a flutter with 4:1 conduction, with slow ventricular rate Cardiology consultation was done for further management of new onset atrial flutter. #Dizziness 2/2 #New onset atrial flutter with slow ventricular rate Etiology currently unknown, likely secondary to advanced age EKG revealed 4:1 conduction The patient rates has been stable between 45-50 Patient denied any chest pain, palpitations, orthopnea or PND OLAMIDE on 05/03/2025, revealed left atrial evidence of thrombus, therefore elective cardioversion was not attempted. -Telemetry monitoring - Maintain potassium and magnesium greater than 4 and 2 respectively at all the time - May consider electric cardioversion by tomorrow afternoon if the patient does not convert back to sinus rhythm by then - Continue with Eliquis 5 Mg twice daily - Stop Donepezil completely - After 4 weeks of anticoagulation with Eliquis 5 Mg twice daily, we will repeat OLAMIDE, and if no thrombus is seen in the left atrial appendage, we will attempt electrical cardioversion. #Hypertension - Lisinopril 10 mg daily #CAD s/p stents #Hyperlipidemia Lipid panel revealed recently, total cholesterol 117, LDL 66, HDL 35 - Continue with aspirin 81 Mg daily - Continue with atorvastatin 20 Mg daily #Dementia #Atelectasis versus left lower lobe pneumonia #Left knee osteoarthritis #Tricompartment osteoarthritis #Normocytic normochromic anemia #Chronic kidney disease, stage IIIb #Diabetes mellitus type 2 - Management deferred to primary hospitalist team Thank you for cardiology consultation. We appreciate the opportunity to participate in this patient care. We will continue to follow-up on this patient. The patient's management plan was discussed with my attending physician MD Giuseppe Meléndez MD, PGY Attending Provider Attestation/Addendum I have personally seen and examined the patient separately on the above date of service and discussed the plan of care with the resident. I reviewed the resident Dr. Giuseppe Whittaker consultation progress note and agree with the resident findings and plan in the note above and have also edited the documentation to reflect my findings and plan. Matthew Esteves M.D. Interventional Cardiology
[2025-05-03] MEDS: BENZOCAINE 20% (Hurricaine) SPRAY 1 DOSE TOP (18:24)
[2025-05-03] MEDS: MIDAZOLAM INJ 1 MG/ML VIAL 2 ML 2 MG IVP (18:25)
[2025-05-03] MEDS: fentaNYL CIT INJ 50 mCg/ML AMP 2ML IVP (19:02)
--- NOTE | 2025-05-03 19:05 | PC.NURSE ---
PATIENT CAME TO ROOM 258 AT 1800 FOR OLAMIDE PROCEDURE AND POSSIBLE CARDIOVERSION. PT RECEIVED MODERATE INTRAVENOUS SEDATION FOR OLAMIDE AND CARDIOVERSION IS CANCELLED. PT IS RECOVERED IN ICU AND WILL RETURN TO ROOM 275 @1930
[2025-05-03] MEDS: ATORVASTATIN CALCIUM 20 MG TABLET PO (20:06)
[2025-05-03] MEDS: APIXABAN 2.5 MG TABLET 5 MG PO (20:06)
[2025-05-04] VITALS (7 sets, daily range): BP systolic 131–165; BP diastolic 70–92; PULSE 55–87; RESP 15–20; TEMP 36.1–36.8; O2SAT 93–96
--- NOTE | 2025-05-04 00:48 | PC.NURSE ---
DR. MERIDA MADE AWARE OF 12 BEATS OF VTACH. BP AT 147/79. PT ASYMPTOMATIC. RESTING WITH EYES, RESPIRATIONS EVEN UPON WALKING INTO ROOM. NO C/O CP, DIZZINESS PER PT. NEW ORDERS TO BE PLACED BY .
[2025-05-04] MEDS: Magnesium Sulfate 2 GM Ivpb 2 GM/50 ML BAG IV (01:02)
[2025-05-04 05:30] LABS: Basophils # (Auto) 0.0 Thou/mm3 (0.0-0.2); Basophils % (Auto) 1 % (0-2.5); Eosinophils # (Auto) 0.3 Thou/mm3 (0.0-0.5); Eosinophils % (Auto) 5 % (0-10); Hematocrit 35.8 % (41.0-53.0); Hemoglobin 12.2 g/dL (13.5-16.0); Immature Granulocytes Auto 0.02 Thou/mm3 (0.00-0.00); Lymphocytes # (Auto) 1.0 Thou/mm3 (1.0-4.8); Lymphocytes % (Auto) 18 % (10-50); Mean Corpuscular HGB Conc 34.1 g/dl (31.0-37.0); Mean Corpuscular Hemoglobin 28.4 pg (25.0-35.0); Mean Corpuscular Volume 83 fL (80-100); Monocytes # (Auto) 0.5 Thou/mm3 (0.0-0.8); Monocytes % (Auto) 9 % (0-12); Neutrophils # (Auto) 3.8 Thou/mm3 (1.8-7.7); Neutrophils % (Auto) 67 % (37-80); Nucleated Red Blood Cell # 0.00 Thou/mm3 (0.00-0.00); Nucleated Red Blood Cell % 0 /100 WBC (0); Platelet Count 152 Thou/mm3 (140-440); RDW Standard Deviation 46.7 fL (35.1-43.9); Red Blood Count 4.29 Miln/mm3 (4.50-5.90); White Blood Count 5.7 Thou/mm3 (3.8-10.6)
[2025-05-04 06:29] LABS: Anion Gap 10 (7-16); BUN/Creatinine Ratio 15 Ratio (12-20); Blood Urea Nitrogen 23 mg/dL (9-23); Calcium 8.4 mg/dL (8.3-10.6); Carbon Dioxide 25.5 mMol/L (20.0-31.0); Chloride 108 mMol/L (98-107); Creatinine (Component) 1.5 mg/dL (0.6-1.3); Estimated Creatinine Clearance 34.9 mL/min (>60); Glucose 120 mg/dL (74-106); Magnesium 2.0 mg/dL (1.6-2.6); Osmolality,Calculated 289 (275-295); Phosphorous 3.5 mg/dL (2.4-5.1); Potassium 4.2 mMol/L (3.4-5.1); Sodium 143 mMol/L (136-145); eGFR 47 See Note
[2025-05-04] MEDS: ESCITALOPRAM OXALATE 10 MG TABLET 5 MG PO (08:34)
[2025-05-04] MEDS: ASPIRIN EC 81 MG TABEC PO (08:34)
[2025-05-04] MEDS: APIXABAN 2.5 MG TABLET 5 MG PO (08:34)
--- NOTE | 2025-05-04 14:03 | ESPR_ITS ---
Documentation for date of: 05/04/25 Subjective Subjective Interval history: The patient was seen and examined at the bedside this morning. He denied any chest pain, palpitations, orthopnea or PND, SOB, and vehicle monitor technician was revealing 4:1 conduction atrial flutter. His vitals were stable with blood pressure 141/81, heart rate ranging from 50-70 bpm Labs at baseline with hemoglobin 12.2, potassium 4.1, creatinine 1.5, magnesium 2.0 At the patient heart rate is well-controlled, and has been asymptomatic, no rate or rhythm control needed. Continue with the Eliquis 5 mg twice daily, aspirin 81 Mg daily and atorvastatin 81 Mg for now. The patient will get repeat OLAMIDE as an outpatient basis 4 weeks after Eliquis, and if no thrombus is seen, the patient will get elective cardioversion. Exam Vital Signs Temp Pulse Resp BP Pulse Ox O2 Del Method 98.0 F 87 18 131/78 H 95 Room Air 05/04/25 12:00 05/04/25 12:00 05/04/25 12:05/04/25 12:00 05/04/25 12:05/04/25 12:00 Narrative Exam General: No acute distress, Alert and Oriented x 3 HEENT: Moist mucous membranes, oropharynx clear, visually impaired Neck: Supple, No masses, No JVD CVS: regularly irregular rhythm, No murmurs, rubs or gallops Lungs: Clear to auscultation with no accessory use, no wheeze no rhonchi Abd: Soft, NT/ND, +BS, no organomegaly Ext: No edema, warm and well perfused Skin: No rash Psych: Appropriate mood and affect Objective Labs 05/04/25 04:55 05/04/25 04:55 Labs: Laboratory Results - last 24 hr 05/04/25 04:55 WBC 5.7 RBC 4.29 L Hgb 12.2 L D Hct 35.8 L MCV 83 MCH 28.4 MCHC 34.1 RDW Std Deviation 46.7 H Plt Count 152 D Neut % (Auto) 67 Lymph % (Auto) 18 [place] % (Auto) 9 Eos % (Auto) 5 Baso % (Auto) 1 Neut # (Auto) 3.8 Lymph # (Auto) 1.0 [place] # (Auto) 0.5 Eos # (Auto) 0.3 Baso # (Auto) 0.0 Immature Gran # (Auto) 0.02 H Absolute Nucleated RBC 0.00 Immature Gran % 0 Nucleated RBC % 0 Sodium 143 Potassium 4.2 Chloride 108 H Carbon Dioxide 25.5 Anion Gap 10 BUN 23 Creatinine 1.5 H Estim Creat Clear Calc 34.9 L eGFR 47 L BUN/Creatinine Ratio 15 Glucose 120 H Calculated Osmolality 289 Calcium 8.4 Phosphorus 3.5 Magnesium 2.0 Quality Measures Quality Measures none Advance care planning discussed with:: patient and child Assessment & Plan Assessment Current Active Medications: Generic Name Dose Route Start Last Admin Trade Name Freq PRN Reason Stop Dose Admin Acetaminophen 650 mg 05/04/25 07:51 Acetaminophen 325 Mg Tablet PO 06/01/25 00:21 Q6H PRN PAIN SCALE 1-3 (mild Apixaban 5 mg 05/04/25 09:00 05/04/25 08:34 Apixaban 2.5 Mg Tablet PO 06/01/25 20:59 5 mg BID ANTONY Administration Aspirin 81 mg 05/03/25 09:30 05/04/25 08:34 Aspirin Ec 81 Mg Tabec PO 06/02/25 08:59 81 mg QDAY ANTONY Administration Atorvastatin Calcium 80 mg 05/04/25 21:00 Atorvastatin Calcium 20 Mg Tablet PO 06/03/25 20:59 HS ANTONY Atropine Sulfate 0.5 mg 05/04/25 07:52 Atropine Sulf Inj 0.4 Mg/Ml Vial IV Q5MIN PRN HR <40 and symptomatic Dextrose 25 ml 05/04/25 07:53 Dextrose 50%-Water Inj 50 Ml Syringe IV 06/01/25 00:27 Q15MIN PRN BG 50-70 responsive npo pt Dextrose 50 ml 05/04/25 07:54 Dextrose 50%-Water Inj 50 Ml Syringe IV 06/01/25 00:27 Q15MIN PRN BG <50 OR BG <70 & pt unresponsive Escitalopram Oxalate 5 mg 05/03/25 09:30 05/04/25 08:34 Escitalopram Oxalate 10 Mg Tablet PO 06/02/25 14:44 5 mg QDAY ANTONY Administration Glucagon 1 mg 05/04/25 07:52 Glucagon Inj 1 Mg Vial IM Q15MIN PRN BG <70, and no IV access Insulin Human Lispro 0 unit 05/02/25 21:00 05/04/25 11:51 Insulin Lispro (Admelog) 1 Unit/0.01 Ml Unit SC 06/01/25 20:59 Not Given ACHS ANTONY Protocol Lisinopril 10 mg 05/04/25 09:00 05/04/25 08:33 Lisinopril 2.5 Mg Tablet PO 06/02/25 08:59 10 mg QDAY ANTONY Administration Ondansetron HCl 4 mg 05/04/25 07:53 Ondansetron Inj 2 Mg/Ml Inj 2 Ml IVP 06/01/25 00:21 Q6H PRN NAUSEA OR VOMITING Protocol Risperidone 1 mg 05/03/25 09:45 05/04/25 08:34 Risperidone 1 Mg Tablet PO 06/01/25 08:59 1 mg QDAY ANTONY Administration Sennosides 1 tab 05/04/25 00:30 05/04/25 00:34 Senna Tablet PO 06/03/25 00:29 1 tab QDAY PRN Administration constipation Protocol Plan The patient is a 79-year-old male with past medical history of hypertension, diabetes mellitus type 2, hyperlipidemia, CAD s/p CABG, dementia, and osteoarthritis presented to ED on 05/01/2025 with chief complaint of dizziness, headache and knee pain. EKG revealed a flutter with 4:1 conduction, with slow ventricular rate Cardiology consultation was done for further management of new onset atrial flutter. #Dizziness 2/2 #New onset atrial flutter with slow ventricular rate Etiology currently unknown, likely secondary to advanced age EKG revealed 4:1 conduction The patient rates has been stable between 45-50 Patient denied any chest pain, palpitations, orthopnea or PND OLAMIDE on 05/03/2025, revealed left atrial evidence of thrombus, therefore elective cardioversion was not attempted. -Telemetry monitoring - Maintain potassium and magnesium greater than 4 and 2 respectively at all the time - Continue with Eliquis 5 Mg twice daily - Stop Donepezil completely - After 4 weeks of anticoagulation with Eliquis 5 Mg twice daily, we will repeat OLAMIDE, and if no thrombus is seen in the left atrial appendage, we will attempt electrical cardioversion. #Hypertension - Lisinopril 10 mg daily #CAD s/p stents #Hyperlipidemia Lipid panel revealed recently, total cholesterol 117, LDL 66, HDL 35 - Continue with aspirin 81 Mg daily - Continue with atorvastatin 20 Mg daily #Dementia #Atelectasis versus left lower lobe pneumonia #Left knee osteoarthritis #Tricompartment osteoarthritis #Normocytic normochromic anemia #Chronic kidney disease, stage IIIb #Diabetes mellitus type 2 - Management deferred to primary hospitalist team Thank you for cardiology consultation. We appreciate the opportunity to participate in this patient care. We will continue to follow-up on this patient. The patient's management plan was discussed with my attending physician MD Giuseppe Meléndez MD, PGY Attending Provider Attestation/Addendum I have personally seen and examined the patient separately on the above date of service and discussed the plan of care with the resident. I reviewed the resident Dr. Giuseppe Whittaker consultation progress note and agree with the resident findings and plan in the note above and have also edited the documentation to reflect my findings and plan. Matthew Esteves M.D. Interventional Cardiology
--- NOTE | 2025-05-04 15:47 | ESDS_ITS ---
Planned Discharge Date 05/04/25 DS: Providers Provider Date of admission: 05/02/25 00:22 Primary care physician: Physician No Primary/Family Admitting Provider: Audie Jeff MD Attending Provider on Admission: Audie Jeff MD Consults: 05/02/25 00:34 Consult to Cardiology Routine Comment: New onset atrial flutter Consulting Provider: Matthew Esteves 05/02/25 00:35 Referral Physical Therapy Routine Comment: Physician Instructions: Attending Provider on DC: Feroz Maki Discharging Provider: Feroz Maki Anticipated date of discharge: 05/04/25 DS: Diagnosis Problem List Completed Was Problem List Reviewed/Reconciled?: Yes Hospital Course Hospital Course Hospital course: Summary: Patient is a 79 year old visually impaired male with past medical history of CAD post CABG (10 years ago), HTN, HLD, non-insulin dependent type 2 diabetes mellitus, CKD, and dementia who presented to the ED 05/01 with chief complaints of dizziness, headache, and knee pain and was admitted overnight for managment of new-onset 4:1 atrial flutter with slow ventricular response. ED Course: Patient presented to the ED 05/01 with a one day history of dizziness, headache, and knee pain. Patient denied previous similar episodes. Patient denied chest pain, shortness of breath, and palpitations. Patient denied fever and chills. Patient denied recent travel. Patient denied nausea and vomiting. EKG demonstrated findings consistent with 4:1 atrial flutter and heart rate of 57. CXR demonstrated finds of possible atelectasis versus left lobar pneumonia at the base. Knee x-ray demonstrated findings consistent with tricompartment osteoarthritis. Pertinent labs include: MCV 82 RBC 3.81 Hgb 10.6 Hct 31.5 gluco se 144 BUN 18 Cr 2.0 GFR 34 BNP 146. Treatment included: Meclizine 50 mg POx1 for dizziness. Hospital Course: Patient was admitted for the management of new-onset 4:1 atrial flutter with slow ventricular response. Cardiology consult was placed, Dr. Esteves. EKG demonstrated 4:1 atrial flutter with heart rate of 48. Echocardiogram completed 05/02 demonstrated EF 55%, AV peak velocty 140 cm/s, AV peak gradient 7.8 mmHg, trace mitral regurgitation, mild tricuspid regurgitation, and slightly decreased right ventricular systolic function; diastolic dysfunction could not be graded to atrial flutter. OLAMIDE completed 05/03 demonstrated left atrial appendage thrombus and cardioversion was not done. Pertinent labs include: MCV 83 RBC 4.29 Hgb 12.2 Hct 35.8 glucose 120 BUN 23 Cr 1.5 GFR 47. Treatment provided includes: Aspirin 81 mg PO QD Eliquis 5 mg PO BID Atorvastatin 20 mg PO QHS and holding Donepezil 5 mg PO QD per cardiology recommendations, Amlodipine 5 mg PO QDx1 and restarting Lisinopril 10 mg PO QD for hypertension, and Escitalopram 5 mg PO QD Risperidone 1 mg PO QD as per the patient's home medications. Per cardiology recommendations, Dr. Esteves, patient is to continue on Aspirin 81 mg PO QD, Eliquis 5 mg PO BID, and Atorvastatin 80 mg PO QD. Patient is to follow-up with cardiology outpatient in one week and four weeks for repeat OLAMIDE and possible cardioversion. Patient to continue home medications as prescribed. Instructions: -New medication: Continue with the Eliquis 5 mg twice daily, aspirin 81 Mg daily and atorvastatin 80 Mg for now. -The patient will get repeat OLAMIDE as an outpatient basis 4 weeks after Eliquis, and if no thrombus is seen, the patient will get elective cardioversion. -Please follow up with cardiology, Dr. Esteves, within one week of discharge and OLAMIDE within 4 weeks. -STOP Losartan -Please follow up with your primary care provider within one week of discharge -If your symptoms worsen,please seek immediate medical attention and return to your nearest emergency room -If you do not have a primary care provider, you may follow up at the [facility] at [facility] [address], [place] [address], #New-Onset Atrial Flutter (4:1) w/ slow ventricular response #Atrial Fluter (SVR) #Hypertension #Type 2 Diabetes Mellitus, non-insulin #Hyperglycemia #Chronic Kidney Disease, Stage IIIB #Normocytic Normochromic Anemia #CAD s/p CABG #Hyperlipidemia #Dementia #Atelectasis vs. #Left lower lobe pneumonia #Left Knee Osteoarthritis #Tricompartment Osteoarthritis Case reviewed with attending Dr. Vides and senior resident Dr. Banda. Ana Maria Ferrari MS-4 - The patient's plan was discussed with attending Dr. Peewee Banda MD PGY2 Internal Medicine Time Spent with Patient Time attestation: Total time spent providing and/or coordinating discharge services: Time spent: Greater than 30 minutes Exam Vital Signs Temp Pulse Resp BP Pulse Ox O2 Del Method 97.5 F 66 15 141/81 H 96 Room Air 05/04/25 15:16 05/04/25 15:16 05/04/25 15:16 05/04/25 15:16 05/04/25 15:16 05/04/25 15:16 Narrative Exam General Appearance: Alert & Oriented to person, place, time, and condition; well-nourished male who is lying in bed in no acute distress. HEENT: Skull symmetrical and atraumatic. Conjunctivae pink and moist. Patient is visually impaired. External ear without lesion or discharge. Straight, nares patient, mucosa pink, no discharge. No thyroid nodule appreciated. No cervical lymphadenopathy. Cardio: Normal Rate and Rhythm with S1 and S2 heart sounds. No murmurs or extra heart sounds auscultated. No bruits on carotid auscultation. No peripheral edema or cyanosis. Lungs: Symmetric with good expansion. Chest and back non-tender. Breath sounds vesicular without crackles, wheezing or rhonchi Abdomen: Non-tender, Non-distended, Normal Reactive Bowel Sounds Neuro: Alert, cooperative, oriented to person, place, time, and condition. Speech clear. CN grossly intact. Upper motor strength 5/5 and Lower motor strength 5/5. Sensation intact. Discharge Plan Plan Patient Disposition: HOME (Self Care) Patient condition on transfer: Stable Care Plan Goals: Instructions: -New medication: Continue with the Eliquis 5 mg twice daily, aspirin 81 Mg daily and atorvastatin 81 Mg for now. -The patient will get repeat OLAMIDE as an outpatient basis 4 weeks after Eliquis, and if no thrombus is seen, the patient will get elective cardioversion. -Please follow up with cardiology, Dr. Esteves, within one week of discharge and OLAMIDE within 4 weeks. -STOP Losartan and Donepezil -Please follow up with your primary care provider within one week of discharge -If your symptoms worsen,please seek immediate medical attention and return to your nearest emergency room -If you do not have a primary care provider, you may follow up at the [facility] at [address] [place] [address] [address], [place] [address], Prescriptions/Referrals Prescriptions/Med Rec: New aspirin 81 mg Tablet,Delayed Release (Dr/Ec) 81 mg PO QDAY 30 Days Qty: 30 0RF Eliquis 5 mg tablet 5 mg PO BID 30 Days Qty: 60 1RF Continued metformin 1,000 mg Tablet 1,000 mg PO BID lisinopril 10 mg Tablet 10 mg PO QDAY escitalopram oxalate 5 mg tablet 5 mg PO QDAY Gemtesa 75 mg tablet 75 mg PO QDAY Sentry Senior silver PO QDAY Rx Instructions: Multivitamin & Multimineral supplement risperidone [Risperdal] 0.5 mg tablet 0.5 mg PO .qhs risperidone [Risperdal] 1 mg tablet 1 mg PO .bedtime Qty: 30 1RF Discontinued simvastatin 40 mg Tablet 40 mg PO QDAY ibuprofen 600 mg tablet 600 mg PO Q8H PRN (Reason: pain) Qty: 30 0RF aspirin 325 mg tablet 325 mg PO QDAY losartan [Cozaar] 50 mg tablet 50 mg PO QDAY atorvastatin 20 mg tablet 20 mg PO QPM donepezil 5 mg tablet 5 mg PO QDAY Qty: 30 1RF Referrals: Matthew Esteves MD [Referring Provider] - No Primary/Family,Physician [Primary Care Provider] - Patient/Caregiver Discharge Instructions Discharge Activity: activity as tolerated Education Materials: AFL/Afib Print Language: Upper Sorbian Stand Alone Forms: Bing Award Info., Patient Portal Info Letter Discharge Order Discharge Orders: Discharge (Routine); Ordered 05/04/25 Ordered By: Nataliia Banda Quality Discharge Quality Measures VTE prophylaxis Attestestation MD Attestation I have examined the patient, reviewed labs and imaging findings, discussed the case with the resident(s), and reviewed entered orders. I agree with the plan of care as outlined in this note. Time Spent: [address] Peewee MD
== END 2025-05-04 16:00 | disposition home or self-care (01) | DRG 308 ==
LOC: SERX 23:48 → SERHOLD 05-02 01:13 → S2NX 05-02 02:44
PROVIDERS: Nurse Practitioner Family; Admitting Provider Internal Medicine; Emergency Provider Emergency Medicine; Visit Provider Internal Medicine
DX: I48.92 Unspecified atrial flutter (principal); J18.9 Pneumonia, unspecified organism; J98.11 Atelectasis; D58.9 Hereditary hemolytic anemia, unspecified; E78.5 Hyperlipidemia, unspecified; I25.10 Atherosclerotic heart disease of native coronary artery without angina pectoris; Z95.1 Presence of aortocoronary bypass graft; F03.90 Unspecified dementia, unspecified severity, without behavioral disturbance, psychotic disturbance, mood disturbance, and anxiety; N18.30 Chronic kidney disease, stage 3 unspecified; D63.1 Anemia in chronic kidney disease; I12.9 Hypertensive chronic kidney disease with stage 1 through stage 4 chronic kidney disease, or unspecified chronic kidney disease; E11.22 Type 2 diabetes mellitus with diabetic chronic kidney disease; E56.9 Vitamin deficiency, unspecified; H54.8 Legal blindness, as defined in USA; I48.91 Unspecified atrial fibrillation; M17.12 Unilateral primary osteoarthritis, left knee; N18.32 Chronic kidney disease, stage 3b; Z79.01 Long term (current) use of anticoagulants; Z79.4 Long term (current) use of insulin; Z79.82 Long term (current) use of aspirin; Z79.84 Long term (current) use of oral hypoglycemic drugs; Z79.899 Other long term (current) drug therapy; Z95.5 Presence of coronary angioplasty implant and graft
CPT/HCPCS: 36415; 70450; 71045; 73562; 80048; 80053; 81001; 82728; 83036; 83540; 83550; 83735; 83880; 84100; 84443; 84484; 85025; 85046; 87811; 93005; 93306; 93312; 97162; 99284; J0360; J1815; J2250; J3010; J3475; J7030; A9270

== ENCOUNTER 2025-05-29 09:57 | Emergency (ER) | payer OTHER, SELFPAY ==
[2025-05-29 10:18] VITALS: BP 103/69; PULSE 73; RESP 18; TEMP 36.9; O2SAT 98
--- NOTE | 2025-05-29 10:30 | PD.EDRME ---
Rapid Medical Screening Exam RME Arrival date/time: 05/29/25 09:57 79-year-old male with a history of hypertension, type 2 diabetes was sent to the emergency room by his primary care provider for being in atrial flutter and having a low heart rate I have greeted and performed a focused initial assessment of this patient. A comprehensive ED assessment and evaluation of the patient, analysis of all test results, and completion of the medical decision making process will be conducted by additional ED providers. Chief Complaint: General Adult/Misc Complain Time Seen by Provider: 05/29/25 10:09 Vital signs: Vital Signs Temperature 98.5 F 05/29/25 10:18 Pulse Rate 73 05/29/25 10:18 Respiratory Rate 18 05/29/25 10:18 Blood Pressure 103/69 05/29/25 10:18 Pulse Oximetry (%) 98 05/29/25 10:18 Oxygen Delivery Method Room Air 05/29/25 10:18 Vital signs reviewed by provider: Yes
[2025-05-29 11:03] LABS: Collection Type, Urine Clean Catch
[2025-05-29 11:27] LABS: Bilirubin,Urine Negative (Negative); Blood,Urine Negative (Negative); Clarity,Urine Clear (Clear/Hazy); Color,Urine Yellow (Lt Yel-Yel); Glucose, Urine Negative (Negative); Hyaline Casts,Urine < 1 /hpf (0-1); Ketones,Urine Negative (Negative); Leukocyte Esterase,Urine Negative (Negative); Nitrite,Urine Negative (Negative); PH,Urine 6.0 (5.0-7.0); Protein,Urine Trace (Neg - Trace); RBC,Urine 1 /hpf (0-3); Specific Gravity,Urine 1.014 (1.001-1.035); Squamous Epithelial Cell,Urine < 1 /hpf (0-5); Urobilinogen,Urine Negative mg/dL (0.0-1.0); WBC,Urine 1 /hpf (0-5)
[2025-05-29 11:33] LABS: Basophils # (Auto) 0.0 Thou/mm3 (0.0-0.2); Basophils % (Auto) 1 % (0-2.5); Eosinophils # (Auto) 0.4 Thou/mm3 (0.0-0.5); Eosinophils % (Auto) 8 % (0-10); Hematocrit 33.9 % (41.0-53.0); Hemoglobin 11.0 g/dL (13.5-16.0); Immature Granulocytes Auto 0.01 Thou/mm3 (0.00-0.00); Lymphocytes # (Auto) 1.2 Thou/mm3 (1.0-4.8); Lymphocytes % (Auto) 22 % (10-50); Mean Corpuscular HGB Conc 32.4 g/dl (31.0-37.0); Mean Corpuscular Hemoglobin 28.1 pg (25.0-35.0); Mean Corpuscular Volume 87 fL (80-100); Monocytes # (Auto) 0.4 Thou/mm3 (0.0-0.8); Monocytes % (Auto) 8 % (0-12); Neutrophils # (Auto) 3.2 Thou/mm3 (1.8-7.7); Neutrophils % (Auto) 61 % (37-80); Nucleated Red Blood Cell # 0.00 Thou/mm3 (0.00-0.00); Nucleated Red Blood Cell % 0 /100 WBC (0); Platelet Count 217 Thou/mm3 (140-440); RDW Standard Deviation 48.7 fL (35.1-43.9); Red Blood Count 3.92 Miln/mm3 (4.50-5.90); White Blood Count 5.3 Thou/mm3 (3.8-10.6)
[2025-05-29 11:52] LABS: B-Type Natriuretic Peptide 128 pg/mL (0-100)
[2025-05-29 11:54] LABS: Alanine Aminotransferase 12 U/L (10-49); Albumin, Serum 4.2 gm/dL (3.4-4.8); Albumin/Globulin Ratio 1.4 (1.2-2.2); Alkaline Phosphatase 104 U/L (46-116); Anion Gap 10 (7-16); Aspartate Amino Transferase 17 U/L (0-34); BUN/Creatinine Ratio 15 Ratio (12-20); Bilirubin,Total 0.4 mg/dL (0.3-1.2); Blood Urea Nitrogen 26 mg/dL (9-23); Calcium 10.7 mg/dL (8.3-10.6); Calcium (Corrected) 10.7 mg/dL (8.5-10.1); Carbon Dioxide 26.8 mMol/L (20.0-31.0); Chloride 104 mMol/L (98-107); Creatinine (Component) 1.7 mg/dL (0.6-1.3); Globulin 2.9 gm/dL (2.3-3.5); Glucose 175 mg/dL (74-106); Magnesium 1.3 mg/dL (1.6-2.6); Osmolality,Calculated 289 (275-295); Potassium 5.4 mMol/L (3.4-5.1); Sodium 141 mMol/L (136-145); Total Protein 7.1 gm/dL (5.7-8.2); Troponin I < 0.020 ng/mL (0.0-0.045); eGFR 41 See Note
[2025-05-29 12:05] LABS: INR 1.1 (0.9-1.3); Partial Thromboplastin Time 27.3 Seconds (22.0-36.0); Prothrombin Time 12.2 Seconds (9.0-12.2)
[2025-05-29 12:32] VITALS: BMI 28.3
[2025-05-29 12:35] VITALS: BP 138/75; PULSE 53; RESP 14; TEMP 36.8; O2SAT 99
--- NOTE | 2025-05-29 12:45 | PD.EDADULT ---
ED General RME/HPI General Chief complaint: General Adult/Misc Complain Stated complaint: LOW HR, SENT BY PCP Time Seen by Provider: 05/29/25 10:09 Arrival date/time: 05/29/25 09:57 RME / HPI RME / HPI narrative: 05/29/25 09:57 79-year-old male with a history of hypertension, type 2 diabetes was sent to the emergency room by his primary care provider for being in atrial flutter and having a low heart rate I have greeted and performed a focused initial assessment of this patient. A comprehensive ED assessment and evaluation of the patient, analysis of all test results, and completion of the medical decision making process will be conducted by additional ED providers. DR. ZAPATA MAIN ED EVALUATION 79 year old male with history of CAD s/p CABG, hypertension, diabetes, hyperlipidemia presents to the ED sent by PCP for evaluation of low heart rate while in office today. In the ED, patient has no complaints. However, daughter does report patient has episodes of dizziness with occasional stumbling while walking. Denies chest pain, cough, shortness of breath. Denies nausea, vomiting, diarrhea, constipation. Denies dysuria, urinary frequency and urgency. Related Data Home Medications ?Medication ?Instructions ?Recorded ?Confirmed lisinopril 10 mg tablet 10 mg PO QDAY 08/18/18 05/02/25 metformin 1,000 mg tablet 1,000 mg PO BID 08/18/18 05/02/25 Sentry Senior silver PO QDAY 05/02/25 escitalopram oxalate 5 mg tablet 5 mg PO QDAY 05/02/25 05/02/25 risperidone 0.5 mg tablet 0.5 mg PO .qhs 05/02/25 05/02/25 (Risperdal) vibegron 75 mg tablet (Gemtesa) 75 mg PO QDAY 05/02/25 05/02/25 Previous Rx's ?Medication ?Instructions ?Recorded risperidone 1 mg tablet (Risperdal) 1 mg PO .bedtime #30 tabs 11/09/24 apixaban 5 mg tablet (Eliquis) 5 mg PO BID 1 month #60 tabs 05/04/25 aspirin 81 mg tablet,delayed 81 mg PO QDAY 1 month #30 tabs 05/04/25 release Allergies Allergy/AdvReac Type Severity Reaction Status Date / Time No Known Allergies Allergy Verified 05/29/25 10:04 Review of Systems Review of Systems Systems Reviewed: All systems reviewed, normal except as documented Past Medical History Past Medical History CARDIAC: Positive Hypertension ENT: Positive Cataracts and Blind ENDOCRINE: Positive Endocrine Disorders and Diabetes Mellitus Type 2 Surgical History SURGICAL: Positive Angiogram Social History SMOKING STATUS: Never smoker ED Exam Narrative Physical exam: GENERAL APPEARANCE: alert and oriented x 4, well-developed, well-nourished, no acute distress HEENT: Normocephalic, atraumatic; EOMI; mucous membranes pink, moist; oropharynx clear NECK: Supple LUNGS: CTABL; no wheezes, no rales, no rhonchi HEART: Bradycardia; normal S1, S2; no murmurs ABDOMEN: non distended; normal BS; soft, no tenderness, no guarding, no rebound BACK: no CVA tenderness EXTREMITIES: atraumatic; no edema NEUROLOGIC: awake; alert and oriented x4; cranial nerves II-XII grossly intact PSYCHIATRIC: appropriate mood and affect SKIN: warm, dry, normal color; no rashes Course Quality Measures none Orders Category Date Time Status EKG (ED ONLY) *Do not use* NOW Care 05/29/25 10:29 Completed EKG (ED Only) Stat Exams 05/29/25 10:29 Ordered B-Type Natriuretic Peptide Stat Lab 05/29/25 11:12 Completed CBC Stat Lab 05/29/25 11:12 Completed Comprehensive Metabolic Panel Stat Lab 05/29/25 11:12 Completed Magnesium Stat Lab 05/29/25 11:12 Completed Partial Thromboplastin Time Stat Lab 05/29/25 11:12 Completed Prothrombin Time with INR Stat Lab 05/29/25 11:12 Completed Troponin I Stat Lab 05/29/25 11:12 Completed Urinalysis Stat Lab 05/29/25 10:40 Completed Magnesium Oxide [Mag-Ox 400] Med 05/29/25 12:36 Discontinued 400 mg PO X1 ONE Sod Polystyrene Sulfon Susp [Kayexalate Susp] Med 05/29/25 12:38 Discontinued 30 gm PO X1 ONE Vital Signs Vital signs: Vital Signs Temperature 98.5 F 05/29/25 10:18 Pulse Rate 73 05/29/25 10:18 Respiratory Rate 18 05/29/25 10:18 Blood Pressure 103/69 05/29/25 10:18 Pulse Oximetry (%) 98 05/29/25 10:18 Oxygen Delivery Method Room Air 05/29/25 10:18 Pulse ox is 98% on room air which is adequate. Critical Care Time Critical Care Time Critical Care Time: No Discharge Plan Plan Patient Disposition: HOME (Self Care) Prescriptions/Referrals Prescriptions/Med Rec: No Action metformin 1,000 mg Tablet 1,000 mg PO BID lisinopril 10 mg Tablet 10 mg PO QDAY escitalopram oxalate 5 mg tablet 5 mg PO QDAY Gemtesa 75 mg tablet 75 mg PO QDAY Sentry Senior silver PO QDAY Rx Instructions: Multivitamin & Multimineral supplement risperidone [Risperdal] 0.5 mg tablet 0.5 mg PO .qhs aspirin 81 mg Tablet,Delayed Release (Dr/Ec) 81 mg PO QDAY 30 Days Qty: 30 0RF Eliquis 5 mg tablet 5 mg PO BID 30 Days Qty: 60 1RF risperidone [Risperdal] 1 mg tablet 1 mg PO .bedtime Qty: 30 1RF Referrals: Porsche Lara MD [Primary Care Provider] - In 1 week Heidy Ureña MD [Physician] - 05/29/25 3:00 pm Problem List Clinical Impression: Atrial flutter, Bradycardia Patient/Caregiver Discharge Instructions Additional Instructions: Follow up with Dr. Ureña today, 05/29/25, at 3pm. Print Language: Lao Stand Alone Forms: Bing Award Info., Patient Portal Info Letter MDM Narrative [facility] hospital course: Maryann Francisco, krista scribing for and in the presence of Dr. Zapata. Clinical Information Provided by patient and family (daughter adds to history ) Medical Records Reviewed [facility] I reviewed admission from 05/01/2025 through 05/04/2025 Meds/Rx Considered, not Ordered None Labs/Rad/Tests considered, not Ordered None Chronic Illness/Social Conditions which may negatively complicate care or outcome(s)-explain: CHF/CAD/Cardiac illness EKG Interpretation EKG #1: Date/time of EK05/29/25 1:09 pm EKG interpretation: Atrial flutter, rate 67, Q-wave in V1, poor R-wave progression, no acute ischemic changes. Lab Interpretation Labs: interpreted by tn Lab(s) interpretation(s): Patient is hyperkalemic at 5.4 Imaging Imaging interpretation: none Medication Administration(s) Medication Administration History Discontinued Medications Magnesium Oxide (Magnesium Oxide 400 Mg Tablet) 400 mg PO X1 ONE Stop: 05/29/25 12:37 Sodium Polystyrene Sulfonate (Sod Polystyrene Sulfon Susp 15 Gm/60 Ml Btl) 30 gm PO X1 ONE Stop: 05/29/25 12:39 See above Consultations/Discussions re: Management Consult #1: Date/time: 05/29/25 12:48 pm Physician, specialty, service, details: I spoke with machine deicer element winder Dr. Ureña. Discussed patients PMHx, HPI, ED course, exam findings, labs results. Discussed patients echo from admission 1 month ago. States he will see patient in his office today at 3PM. Diagnosis Most likely dx, and/or detailed dx discussion: Atrial flutter Bradycardia Dispositon Disposition: Discharge Home
[2025-05-29] MEDS: SOD POLYSTYRENE SULFON SUSP 15 GM/60 ML BTL 30 GM PO (13:31)
[2025-05-29] MEDS: MAGNESIUM OXIDE 400 MG TABLET PO (13:32)
[2025-05-29 13:36] VITALS: BP 138/75; PULSE 58; RESP 14; TEMP 36.9; O2SAT 100
== END 2025-05-29 13:38 | disposition home or self-care (01) ==
PROVIDERS: Nurse Practitioner Family; Emergency Provider Emergency Medicine; PCP Family Medicine
DX: I48.92 Unspecified atrial flutter (principal); R00.1 Bradycardia, unspecified; I25.10 Atherosclerotic heart disease of native coronary artery without angina pectoris; I10 Essential (primary) hypertension; E11.9 Type 2 diabetes mellitus without complications; E78.5 Hyperlipidemia, unspecified
CPT/HCPCS: 36415; 80053; 81001; 83735; 83880; 84484; 85025; 85610; 85730; 93005; 99283; A9270

== ENCOUNTER 2025-06-15 06:45 | Day surgery (SDC) | payer OTHER, SELFPAY ==
[2025-06-13 09:23] VITALS: BMI 24.7
[2025-06-14 09:01] LABS: Basophils # (Auto) 0.0 Thou/mm3 (0.0-0.2); Basophils % (Auto) 1 % (0-2.5); Eosinophils # (Auto) 0.4 Thou/mm3 (0.0-0.5); Eosinophils % (Auto) 7 % (0-10); Hematocrit 30.8 % (41.0-53.0); Hemoglobin 10.0 g/dL (13.5-16.0); Immature Granulocytes Auto 0.01 Thou/mm3 (0.00-0.00); Lymphocytes # (Auto) 1.3 Thou/mm3 (1.0-4.8); Lymphocytes % (Auto) 27 % (10-50); Mean Corpuscular HGB Conc 32.5 g/dl (31.0-37.0); Mean Corpuscular Hemoglobin 27.9 pg (25.0-35.0); Mean Corpuscular Volume 86 fL (80-100); Monocytes # (Auto) 0.4 Thou/mm3 (0.0-0.8); Monocytes % (Auto) 8 % (0-12); Neutrophils # (Auto) 2.7 Thou/mm3 (1.8-7.7); Neutrophils % (Auto) 56 % (37-80); Nucleated Red Blood Cell # 0.00 Thou/mm3 (0.00-0.00); Nucleated Red Blood Cell % 0 /100 WBC (0); Platelet Count 221 Thou/mm3 (140-440); RDW Standard Deviation 49.2 fL (35.1-43.9); Red Blood Count 3.58 Miln/mm3 (4.50-5.90); White Blood Count 4.7 Thou/mm3 (3.8-10.6)
[2025-06-14 09:15] LABS: INR 1.0 (0.9-1.3); Partial Thromboplastin Time 23.7 Seconds (22.0-36.0); Prothrombin Time 11.2 Seconds (9.0-12.2)
[2025-06-14 09:17] LABS: Anion Gap 12 (7-16); BUN/Creatinine Ratio 12 Ratio (12-20); Blood Urea Nitrogen 22 mg/dL (9-23); Calcium 10.3 mg/dL (8.3-10.6); Carbon Dioxide 26.0 mMol/L (20.0-31.0); Chloride 105 mMol/L (98-107); Creatinine (Component) 1.9 mg/dL (0.6-1.3); Estimated Creatinine Clearance 25.8 mL/min (>60); Glucose 156 mg/dL (74-106); Osmolality,Calculated 291 (275-295); Potassium 4.9 mMol/L (3.4-5.1); Sodium 143 mMol/L (136-145); eGFR 36 See Note
[2025-06-15] VITALS (21 sets, daily range): BP systolic 108–181; BP diastolic 59–88; PULSE 41–81; RESP 12–18; TEMP 36.3–36.4; O2SAT 96–99
[2025-06-15] MEDS: DIAZEPAM 5 MG TABLET PO (07:20)
--- NOTE | 2025-06-15 07:30 | PC.NURSE ---
INFORMED CONSENT OBTAINED FROM PATIENT AND DAUGHTER AT BEDSIDE FOR [facility]
--- NOTE | 2025-06-15 08:04 | PD.CARDCATH ---
Cardiac Cath Procedure Procedure Narrative Date of the procedure 06/15/2025 Title of the procedure 1.left heart catheterization 2.left coronary angiogram 3.right coronary angiogram 4.left ventriculogram 5.conscious sedation 6.radiographic interpretation supervision 7.ipsilateral right peripheral arterial runoff Indication for the procedure This is a 79-year-old gentleman with hypertension hyperlipidemia atrial flutter Patient has prior history of bypass surgery He was complaining of atypical chest pain Therefore cardiac catheter and coronary angiogram was recommended as his abnormal Cardiolite scan was noted He was also complaining of bilateral leg pains in this regard. Proceed with ipsilateral right peripheral arterial runoff as well Patient also noted to have elevated creatinine of 1.9 in this regard patient was pretreated with IV fluids Procedure This was done in the cardiac lab under current electrocardiographic monitoring Intermittent blood pressure monitoring right radial access obtained using modified Seldinger technique and ultrasound guidance 6 [place] sheath was placed JR4 catheter used for selective in the right coronary artery JL 4 catheter was used for selection of the left coronary artery JR4 catheter was also used for internal mammary artery angiogram The JR4 catheter was used for selective angiogram of angiogram the vein graft to the diagonal Angiogram of the vein graft to the obtuse marginal Hemodynamics LV gram not done in view of patient's elevated creatinine Coronary anatomy 1.left main coronary artery appears normal 2.left anterior descending artery is 100% flush occluded at the ostium 3.left circumflex artery is 100% occluded proximally 4.right coronary is a dominant vessel 30 to 40% lesion distally noted 5.PDA has luminal irregularities 6.vein graft to the obtuse marginal appears to be patent 7.vein graft to the diagonal appears to be occluded 8.PARNELL to the LAD appears to be widely patent 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
[2025-06-15] MEDS: SODIUM CHLORIDE 0.45 % 500 ML IV ×3 (08:30→10:55)
[2025-06-15] MEDS: hydrALAZINE INJ 20 MG/ML VIAL 10 MG IVP (09:57)
--- NOTE | 2025-06-15 11:34 | PC.NURSE ---
1054 patient is awake, alert, breathing unlabored, s/p LHC, dressing to right groin dry wiht no bleeding or hematoma, pedal pulses present, checked with doppler. Report received from Miguel FUENTES, patient to recover untill 1300.
--- NOTE | 2025-06-15 11:45 | PC.NURSE ---
1140 report given to Miguel FUENTES
== END 2025-06-15 13:10 | disposition home or self-care (01) ==
PROVIDERS: PCP Family Medicine; Referring Provider Internal Medicine; Visit Provider Internal Medicine
PROC: (CPT 93459; principal; 2025-06-15 07:45)
DX: I25.10 Atherosclerotic heart disease of native coronary artery without angina pectoris (principal); E78.5 Hyperlipidemia, unspecified; I48.92 Unspecified atrial flutter; I48.91 Unspecified atrial fibrillation; I25.810 Atherosclerosis of coronary artery bypass graft(s) without angina pectoris; I25.82 Chronic total occlusion of coronary artery; E11.22 Type 2 diabetes mellitus with diabetic chronic kidney disease; I12.9 Hypertensive chronic kidney disease with stage 1 through stage 4 chronic kidney disease, or unspecified chronic kidney disease; N18.9 Chronic kidney disease, unspecified; H54.8 Legal blindness, as defined in USA; Z79.01 Long term (current) use of anticoagulants; Z79.84 Long term (current) use of oral hypoglycemic drugs; Z79.899 Other long term (current) drug therapy
CPT/HCPCS: 93459; 36415; 75710; 80048; 85025; 85610; 85730; 93005; 99152; A4649; C1725; C1769; C1894; J0168; J0360; J0461; J1643; J2250; J2312; J2371; J3010; J3490; J7030; Q9967; A9270; J2305

== ENCOUNTER → 2025-07-13 | Outpatient (BNVA) | payer OTHER, MEDICAID, SELFPAY | END | disposition home or self-care (01) | PROVIDERS: PCP Family Medicine; Referring Provider Family Medicine; Visit Provider Urology | DX: N40.1 Benign prostatic hyperplasia with lower urinary tract symptoms (principal); N13.8 Other obstructive and reflux uropathy; I12.9 Hypertensive chronic kidney disease with stage 1 through stage 4 chronic kidney disease, or unspecified chronic kidney disease; E11.22 Type 2 diabetes mellitus with diabetic chronic kidney disease; N18.30 Chronic kidney disease, stage 3 unspecified; I25.2 Old myocardial infarction | CPT/HCPCS: 81003; 99212; G0463 ==

== ENCOUNTER → 2025-07-24 | Outpatient (CLI) | payer OTHER, SELFPAY ==
[2025-07-24 13:35] LABS: Alanine Aminotransferase 15 U/L (10-49); Albumin, Serum 4.5 gm/dL (3.4-4.8); Albumin/Globulin Ratio 1.6 (1.2-2.2); Alkaline Phosphatase 104 U/L (46-116); Anion Gap 13 (7-16); Aspartate Amino Transferase 19 U/L (0-34); BUN/Creatinine Ratio 16 Ratio (12-20); Bilirubin,Total 0.3 mg/dL (0.3-1.2); Blood Urea Nitrogen 31 mg/dL (9-23); Calcium 9.8 mg/dL (8.3-10.6); Calcium (Corrected) 9.8 mg/dL (8.5-10.1); Carbon Dioxide 23.4 mMol/L (20.0-31.0); Chloride 106 mMol/L (98-107); Creatinine (Component) 1.9 mg/dL (0.6-1.3); Globulin 2.9 gm/dL (2.3-3.5); Glucose 121 mg/dL (74-106); Osmolality,Calculated 290 (275-295); Potassium 4.3 mMol/L (3.4-5.1); Sodium 142 mMol/L (136-145); Total Protein 7.4 gm/dL (5.7-8.2); eGFR 36 See Note
[2025-07-24 14:04] LABS: Glucose Estimated Average 151 mg/dL (80-131); Hemoglobin A1C 6.9 % Hgb (4.8-6.0)
== END | disposition home or self-care (01) ==
PROVIDERS: PCP Family Medicine; Referring Provider Family Medicine; Visit Provider Family Medicine
DX: E11.65 Type 2 diabetes mellitus with hyperglycemia (principal)
CPT/HCPCS: 36415; 80053; 82043; 82570; 83036

== ENCOUNTER 2025-08-29 06:36 | Day surgery (SDC) | payer OTHER, SELFPAY ==
[2025-08-25 12:59] VITALS: BMI 25.7
--- NOTE | 2025-08-28 07:00 | EKG_ITS ---
[facility] Test Date: 2025-08-28 Pat Name: GEREMIAS OLMEDO Department: Room: - Gender: Male [employer] Control Technician: YEFRI : [id number] Requested By: Heidy Ureña Order Number: [id number] Reading MD: Heidy Ureña Measurements Intervals [place] Rate: 70 P: 213 TX: 308 QRS: 35 QRSD: 99 T: 3 QT: 397 QTc: 429 Interpretive Statements SINUS RHYTHM WITH FIRST DEGREE AV BLOCK NONSPECIFIC T-WAVE ABNORMALITY Compared to ECG 05/02/2025 08:18:54 First degree AV block now present T-wave abnormality now present Atrial flutter no longer present ST (T wave) deviation no longer present Prolonged QT interval no longer present /store/S0/[id number].pdf
[2025-08-28 09:49] LABS: INR 1.1 (0.9-1.3); Partial Thromboplastin Time 25.5 Seconds (22.0-36.0); Prothrombin Time 11.2 Seconds (9.0-12.2)
[2025-08-28 09:51] LABS: Anion Gap 14 (7-16); BUN/Creatinine Ratio 12 Ratio (12-20); Blood Urea Nitrogen 22 mg/dL (9-23); Calcium 10.1 mg/dL (8.3-10.6); Carbon Dioxide 25.0 mMol/L (20.0-31.0); Chloride 106 mMol/L (98-107); Creatinine (Component) 1.9 mg/dL (0.6-1.3); Estimated Creatinine Clearance 25.8 mL/min (>60); Glucose 110 mg/dL (74-106); Osmolality,Calculated 293 (275-295); Potassium 4.3 mMol/L (3.4-5.1); Sodium 145 mMol/L (136-145); eGFR 36 See Note
[2025-08-28 10:00] LABS: Basophils # (Auto) 0.1 Thou/mm3 (0.0-0.2); Basophils % (Auto) 1 % (0-2.5); Eosinophils # (Auto) 0.2 Thou/mm3 (0.0-0.5); Eosinophils % (Auto) 3 % (0-10); Hematocrit 33.8 % (41.0-53.0); Hemoglobin 11.1 g/dL (13.5-16.0); Immature Granulocytes Auto 0.02 Thou/mm3 (0.00-0.00); Lymphocytes # (Auto) 1.4 Thou/mm3 (1.0-4.8); Lymphocytes % (Auto) 20 % (10-50); Mean Corpuscular HGB Conc 32.8 g/dl (31.0-37.0); Mean Corpuscular Hemoglobin 28.5 pg (25.0-35.0); Mean Corpuscular Volume 87 fL (80-100); Monocytes # (Auto) 0.5 Thou/mm3 (0.0-0.8); Monocytes % (Auto) 7 % (0-12); Neutrophils # (Auto) 4.8 Thou/mm3 (1.8-7.7); Neutrophils % (Auto) 69 % (37-80); Nucleated Red Blood Cell # 0.00 Thou/mm3 (0.00-0.00); Nucleated Red Blood Cell % 0 /100 WBC (0); Platelet Count 215 Thou/mm3 (140-440); RDW Standard Deviation 47.2 fL (35.1-43.9); Red Blood Count 3.90 Miln/mm3 (4.50-5.90); White Blood Count 7.0 Thou/mm3 (3.8-10.6)
[2025-08-29] VITALS (15 sets, daily range): BP systolic 111–192; BP diastolic 70–97; PULSE 57–91; RESP 13–18; TEMP 36.7–36.8; O2SAT 95–100
[2025-08-29] MEDS: DIAZEPAM 5 MG TABLET PO (07:17)
--- NOTE | 2025-08-29 08:22 | PD.CARDCATH ---
Cardiac Cath Procedure Procedure Narrative Procedure date 08/29/2025 Title of the procedure 1.abdominal aortogram 2.ipsilateral angiogram of the femoral arteries 3.ipsilateral angiogram of the popliteal arteries 4.ipsilateral below the knee angiogram 5.contralateral iliac angiogram 6.contralateral angiogram of the femoropopliteal region 7.contralateral angiogram of the below the knee vessels Indication for the procedure 79-year-old gentleman with past medical history of hypertension diabetes hyperlipidemia Patient was complaining of bilateral leg pains FELICITAS was done which was showing reduced velocities below the knee vessels We continued medical management walking exercise Patient leg symptoms are getting worse Unable to walk even half a block without claudication type symptoms Therefore we decided to proceed with invasive assessment with review for intervention Procedure This is done in the cardiac lab under continue electrocardiographic monitoring intermittent blood pressure monitoring Left femoral access obtained using modified Seldinger technique and 5 [place] sheath was placed Through the 5 [place] sheath ipsilateral right iliac angiogram right femoral popliteal angiogram and right below the knee vessel angiograms were done Following that IM catheter used to obtain abdominal aortogram and runoff of the contralateral iliofemoral region Subsequently the IM catheter was moved down to the contralateral femoral region and femoral-popliteal angiogram was done Following that contralateral below the knee vessel angiogram was done Findings 1.ipsilateral femoral artery shows mild diffuse disease 2. Ipsilateral popliteal artery shows 30% lesion at the knee joint region 3.below the knee vessels are not well-visualized on the ipsilateral side 4.contralateral iliac angiogram shows a 30% lesion in the bifurcation point between internal and external iliac arteries 5.contralateral femoral-popliteal region shows mild diffuse disease 6.contralateral right anterior tibial artery has mild disease runs down to the ankle course and supplies the foot 7.contralateral right posterior tibial artery is chronically occluded in its entire length the vessel is not visualized no runoff noted 8.contralateral right peroneal artery appears to be occluded proximally the vessel is not visualized distally it is a chronic occlusion 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
[2025-08-29] MEDS: hydrALAZINE INJ 20 MG/ML VIAL 10 MG IVP (10:21)
== END 2025-08-29 13:20 | disposition home or self-care (01) ==
PROVIDERS: PCP Family Medicine; Referring Provider Internal Medicine; Visit Provider Internal Medicine
PROC: (CPT 75600; principal; 2025-08-29 07:30)
DX: I25.810 Atherosclerosis of coronary artery bypass graft(s) without angina pectoris (principal); R00.1 Bradycardia, unspecified; E78.5 Hyperlipidemia, unspecified; I48.91 Unspecified atrial fibrillation; I10 Essential (primary) hypertension; E11.9 Type 2 diabetes mellitus without complications; Z01.810 Encounter for preprocedural cardiovascular examination
CPT/HCPCS: 36200; 36415; 75710; 80048; 85025; 85610; 85730; 93005; 99152; A4649; C1769; C1894; J0153; J0168; J0282; J0360; J0461; J1643; J2250; J2312; J2371; J3010; J3490; Q9967; A9270

== ENCOUNTER → 2025-09-21 | Outpatient (BNVA) | payer OTHER, MEDICAID, SELFPAY | END | disposition home or self-care (01) | PROVIDERS: PCP Family Medicine; Referring Provider Family Medicine; Visit Provider Urology | DX: N40.1 Benign prostatic hyperplasia with lower urinary tract symptoms (principal); R39.12 Poor urinary stream; I10 Essential (primary) hypertension | CPT/HCPCS: 51741; 51798 ==